=== PATIENT | male | born 1985 | race Caucasian/White ===

== ENCOUNTER 2018-08-22 02:23 | Emergency (ER) | payer OTHER, SELFPAY ==
[2018-08-22 02:24] VITALS: BP 143/92; PULSE 94; RESP 15; TEMP 37.3; O2SAT 98; BMI 26.4
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
--- NOTE | 2018-08-22 03:00 | ED.RN ---
DR. DENNIS SPOKE WITH PT. VERBAL ORDERS TO D/C SUICIDAL PRECAUTIONS.
--- NOTE | 2018-08-22 03:06 | ED.RN ---
PT SPEAKING WITH DR. DENNIS. SOON DR. DENNIS COMPLETES HIS EVALUATION HE GIVES VERBAL ORDERS TO DISCONTINUE THE SITTER.
--- NOTE | 2018-08-22 03:27 | ED.RN ---
PT GIVEN WRITTEN AND VERBAL DISCHARGE INSTRUCTIONS AND HOME GOING PRESCRIPTIONS. PT VERBALIZES UNDERSTANDING. DR. DENNIS TALKS WITH PT 1 ON . PT REPORTS TO THIS RN THAT HE FEELS SAFE GOING HOME. PT REPORTS THAT HE WILL TRY THE ANTIDEPRESSANT AND MAKE AN APPT WITH A COUNSELOR. PT GIVEN BELONGINGS, DENIES ANY FURTHER QUESTIONS. PT DRESSES HIMSELF. PT EDUCATED TO RETURN TO ED WITH ANY FURTHER SX OR INCREASED SI. PT VERBALIZES UNDERSTANDING OF ALL INSTRUCTIONS. AMBULATES OUT OF DEPT BY SELF.
== END 2018-08-22 03:33 | disposition home or self-care (01) ==
LOC: ED 03:21
PROVIDERS: Emergency Provider Emergency Medicine; Family Provider Family Medicine; PCP Family Medicine
DX: F32.9 Major depressive disorder, single episode, unspecified (principal); F41.9 Anxiety disorder, unspecified; Z79.899 Other long term (current) drug therapy
CPT/HCPCS: 99285

== ENCOUNTER → 2019-04-03 20:00 | Outpatient (CLI) | payer OTHER, SELFPAY ==
[2019-04-03] MEDS: Zolpidem Tartrate 5 MG Tablet PO (21:30)
== END ==
PROVIDERS: Family Provider Family Medicine; PCP Family Medicine; Visit Provider Family Medicine
DX: G47.33 Obstructive sleep apnea (adult) (pediatric) (principal)
CPT/HCPCS: 95810

== ENCOUNTER → 2019-05-18 20:00 | Outpatient (CLI) | payer OTHER, SELFPAY ==
[2019-05-18] MEDS: Zolpidem Tartrate 5 MG Tablet PO (22:03)
== END ==
PROVIDERS: Family Provider Family Medicine; PCP Family Medicine; Referring Provider Family Medicine; Visit Provider Family Medicine
DX: G47.33 Obstructive sleep apnea (adult) (pediatric) (principal)
CPT/HCPCS: 95811

== ENCOUNTER 2020-10-07 08:29 | Day surgery (SDC) | payer OTHER, SELFPAY ==
[2020-09-26 13:11] VITALS: BMI 26.4
--- NOTE | 2020-10-07 07:18 | HP_ITS ---
Intake Vital Signs 09/26/20 Height 5 ft 11 in 09/26/20 Weight: 190 lb 09/26/20 BMI 26.4 09/26/20 BP 119/77 09/26/20 Blood Pressure Location Rt brachial 09/26/20 Position Sitting 09/26/20 Respiration 18 09/26/20 Pulse 92 09/26/20 Pulse Source Monitor 09/26/20 Temp 97.5 F L 09/26/20 Temp Source Temporal 09/26/20 Pulse Oximetry (%) 97 09/26/20 Oxygen Delivery Method room air Intake Visit Reasons: Cyst on Neck Chief Complaint: cyst versus lipoma upper back lower posterior neck Operations Advisor Required: No Accompanied by: Allergies bee venom protein (honey bee) Allergy (Verified 09/26/20 13:13) Anaphylaxis Medications bupropion HCl 300 mg 24 hr tablet, extended release 300 mg PO QAM 09/26/20 [History Confirmed 09/26/20] PFSH Medical History (Updated 09/26/20 @ 13:09 by Agnes Hodge) Bulging lumbar disc (Chronic) Segmental and somatic dysfunction of thoracic region (Acute) Segmental and somatic dysfunction of lumbar region (Acute) Surgical History (Updated 09/26/20 @ 13:09 by Agnes Hodge) Hx of vasectomy (Acute) Family History (Updated 09/26/20 @ 13:10 by Agnes Hodge) Father Diabetes Hypertension Other Breast cancer Social History (Updated 09/26/20 @ 15:[address] Paul Hebert MD) Smoking Status: Never smoker alcohol intake: never substance use type: does not use what type of physical activity do you participate in: none HPI HPI HPI: TREVOR KNUTSON, is a 35 M who presents to the office today for HPI HPI Surgical H&P: Yes HPI: TREVOR KNUTSON, is a 35 M who presents to the office today for Mass on the back of his neck. He has a mass where the neck meets his upper back. He says it has been growing for years and it bothers him and gives him headaches. ROS General General: No weight change, appetite, fatigue, colon cancer, breast cancer or weakness HEENT HEENT: No difficulty swallowing, eye injury, eye surgery, swollen glands or hoarseness Endo Endocrine: No thyroid disease, diabetes mellitus, thyroid cancer, Hair loss, heat intolerance or cold intolerance Skin Skin: No rash or changing moles Breast Breast: No left breast lump, right breast lump, nipple discharge, breast pain, abnormal mammogram, abnormal US or breast enlargement Musc Musculoskeletal: No back problems, arthritis, rheumatoid arthritis, gout or joint pain Cardio Cardiovascular: No murmur, pacemaker, heart disease, atrial fibrillation, high blood pressure, heart attack, heart stent, palpitations, shortness of breat with exertion or chest pain Psych Psychiatric: Yes depression and anxiety; no hearing voices Resp Respiratory: No shortness of breath, Yes sleep apnea, No cough, No COPD, No asthma, No emphysema, No wheezing Gastro Gastrointestinal: No abdominal pain, No nausea or vomiting, No diarrhea, No constipation, No blood in stool, No acid reflux, No hemorrhoids, No ulcers, No gallbladder problem, No black,tarry stools Payam Hematologic: No blood thinners, No blood disorders, No bleeding, No anemia, No blood clots Neuro Neurologic: No system reviewed and no additional complaints, except as docu, No as per HPI, No abnormal walking, No abnormal hearing, No abnormal movements, No abnormal speech, No behavioral changes, No burning sensations, No confusion, No seizure-like activity, No unsteadiness, No dizziness, No localized weakness, No frequent falls, No headache(s), No lack of coordination, No loss of vision, No memory loss, No numbness, No other visual disturbances, No radiating pain, No restless legs, No sensory deficit, No fainting, No tingling, No tremor(s), No weakness, No other Exam Const General: cooperative Orientation: alert, oriented x3 Neck Other: Soft mobile mass on the back of the neck approximately 4 cm in diameter Chest Breast Palpation: No nipple discharge Resp Effort & Inspection: normal respiratory effort Auscultation: clear to auscultation bilaterally Cardio Rate: regular rate Rhythm: regular rhythm Heart Sounds: no murmurs GI Inspection: non-distended Palpation: soft, nontender Assessment & Plan Problems 1. Lipoma of back D17.1 Plan The patient has a lipoma on the back where the neck meets his back. It is soft and mobile and I believe it is a lipoma. Is approximately 4 cm in diameter. It is causing him headaches and he would like it removed. I discussed the risks of bleeding and infection with him and he would like to proceed with excision in the OR. Paul Hebert MD Pager: [facility] [address] [place] [address] Office: Coding Level of Care Code Off vis,new,level 3 Diagnoses Lipoma of back D17.1 I have re-examined the patient. There are no clinical changes since date of exam.
[2020-10-07 08:54] VITALS: BP 108/73; PULSE 78; RESP 18; TEMP 36.4; O2SAT 100; BMI 27.2
[2020-10-07] MEDS: Lactated Ringers 1,000 ML 100 ML IV (08:58)
[2020-10-07] MEDS: Cefazolin 2 GM in 0.9% Normal Saline 100 ML IV (09:28)
[2020-10-07] MEDS: Lidocaine 1% /Epi 1:100 (20ml) 20 ML Vial (09:46)
[2020-10-07 09:50] VITALS: BP 108/73; BP 109/88; PULSE 86; RESP 18; TEMP 36.8; O2SAT 100
[2020-10-07 09:55] VITALS: BP 108/73; BP 111/69; PULSE 81; RESP 18; O2SAT 98
[2020-10-07 10:00] VITALS: BP 108/73; BP 117/76; PULSE 86; RESP 18; O2SAT 99
--- NOTE | 2020-10-07 10:00 | LIP_PTH ---
PATIENT: TREVOR KNUTSON [place] [facility] [place][id number] AGE/SX: 35/M ROOM: RE10/07/[address]: Dr. Paul Hebert MD : 1985 BED: DIS: 10/07/2020 SPEC #: [id number] RECD: 10/07/20 10:14 STATUS: TATYANA REMary #: [id number] NEEMA: 10/07/20 10:[address]: Paul Hebert DEPT: SURGICAL PATHOLOGY RECD BY: Flaquito Frazier ENTERED: 10/07/20 11:54 SP TYPE: LIPOMA OTHR DR: Dr. Marc Webster, DO Tissues: Soft tissues, NOS Procedures: Surgery Specimen Level III HEADER OPERATION: Excision back lipoma PRE-OP DIAGNOSIS: Lipoma of back TISSUE SUBMITTED: Back lipoma MICROSCOPIC DIAGNOSIS Back lipoma, excision: Mature adipose tissue consistent with lipoma. SJ:dana 10/08/2020 MICROSCOPIC DESCRIPTION Slides are reviewed. GROSS DESCRIPTION Received in fixative is one container labeled with the patient's name and designated back lipoma. The specimen consists of a lobulated fragment of yellow fatty tissue measuring 6 x 5 x 1.7 cm. Serial sections reveal homogenous yellow cut surfaces without areas of cyst formation, necrosis or hemorrhage. Hot Oiler sections are submitted in two cassettes. / AM:dana 10/07/20 TC:1 CPT: 74561
[2020-10-07 10:05] VITALS: BP 107/71; BP 108/73; PULSE 75; RESP 18; TEMP 36.6; O2SAT 98
--- NOTE | 2020-10-07 10:08 | PCM.OPRPT ---
Problem List (1) Lipoma of back Status: Acute Report of Operation Date of Procedure: 10/07/20 Pre-Operative Diagnosis: Lipoma of the back Post-Operative Diagnosis: Same Surgery/Procedure Performed:: Excision of deep lipoma of the back, 6 cm in diameter Specimen's removed: Lipoma of the back Description of Procedure: The patient was brought back to the the operating room and placed in a right lateral decubitus position. MAC anesthesia was induced. The upper back and lower neck were prepped and draped in usual sterile fashion. An incision was marked and then injected with local anesthesia. Incision was made with scalpel and deepened to subcutaneous fat. The lipoma was encountered and dissected free circumferentially using electrocautery and blunt dissection. The mass was approximately 6 cm in diameter and was deep to the fascia. The mass was removed and the cavity was irrigated and hemostasis was obtained using electrocautery. The skin was closed with interrupted 3-0 Vicryl sutures as well as a running 4-0 Monocryl suture and then Steri-Strips and bandage were applied. Patient tolerated the procedure well and was brought to PACU. - Admit VTE Documentation VTE Mechan Device Prophylaxis: SCD's
--- NOTE | 2020-10-07 10:10 | PCM.DC.GS ---
Discharge Diet: Light diet - advance as tolerated Discharge Activity: May Not Drive - No driving for 1 week or while taking narcotic pain meds. May shower in (days): 1 Call your doctor if your incision/area has: Continuous Slow Oozing, Sudden Increased Bleeding, Increased Pain/ Swelling, Increased Redness, Foul Smelling Discharge, Swelling at the incision site Call your doctor if you observe: Fever of 101 or Higher Suture Line Care: Avoid Pulling/Pushing, Avoid Pinching/Bending Change Dressing in (Days):: 2 - Leave steri-strips in place for 1 week. Allergies/Adverse Reactions: Allergies bee venom protein (honey bee) Allergy (Verified 10/07/20 08:53) Anaphylaxis Medications to take at Discharge bupropion HCl 300 mg 24 hr tablet, extended release 300 mg PO QAM 09/26/20 Oxycodone HCl/Acetaminophen [Percocet 5-325 mg Tablet] 1 tab PO Q6H PRN PRN 3 Days #15 tablet 10/07/20 The following prescriptions were given: Oxycodone HCl/Acetaminophen [Percocet 5-325 mg Tablet] 1 tab PO Q6H PRN PRN 3 Days #15 tablet PRN Reason: Pain Score 4-10/10 Transmission Status: Sent to [facility] Primary Care Physician: Marc Webster DO [Primary Care Provider] - Test Results: Test results from this visit will be discussed in further detail at your follow-up appointment, if applicable. Please Follow Up With: Paul Hebert MD When: Please call to schedule 2 week follow up appointment. [phone]
[2020-10-07 10:32] VITALS: BP 108/73; BP 120/69; PULSE 73; RESP 16; TEMP 37.1; O2SAT 99
== END 2020-10-07 10:34 | disposition home or self-care (01) ==
LOC: SDC 08:30 → AC 08:30
PROVIDERS: PCP Family Medicine; Referring Provider Surgery; Visit Provider Surgery
PROC: (CPT 21931; principal; 2020-10-07 09:45)
DX: D17.1 Benign lipomatous neoplasm of skin and subcutaneous tissue of trunk (principal); Z20.822 Contact with and (suspected) exposure to COVID-19; F32.9 Major depressive disorder, single episode, unspecified; F41.9 Anxiety disorder, unspecified
CPT/HCPCS: 00300; 21931; 87426; 88304; C9803; J7120

== ENCOUNTER → 2021-05-07 | Outpatient (CLI) | payer OTHER, SELFPAY | END | disposition home or self-care (01) | LOC: LABSPEC 11:38 | PROVIDERS: PCP Family Medicine; Visit Provider Physician Assistant | DX: Z11.52 Encounter for screening for COVID-19 (principal) | CPT/HCPCS: 87635; U0005; U0003 ==

== ENCOUNTER → 2025-03-26 | Outpatient (CLI) | payer OTHER, SELFPAY ==
[2025-03-26 18:23] LABS: Hematocrit 33.0 % (40-54); Hemoglobin 10.9 g/dL (13.0-16.5); Immature Granulocytes Count 0.010 X10^3/uL (0.0-0.0); Mean Corp Hgb Conc 33.0 g/dL (32-36); Mean Corpuscular Volume 92.7 fL (80-94); Mean Platelet Vol. 9.9 fl (6.2-12.0); NRBC Flagged by Analyzer 0 % (0-5); Platelet Count 337 K/mm3 (150-450); RBC Distribution Width CV 12.5 % (11.6-14.6); RBC Distribution Width SD 43.0 fl (35.1-43.9); Red Blood Count 3.56 M/mm3 (4.6-6.2); White Blood Count 4.3 K/mm3 (4.4-11.0)
[2025-03-26 19:02] LABS: AST(SGOT) 22 U/L (<=37); Alanine Aminotransfer ALT/SGPT 31 U/L (<=46); Albumin, Serum 4.8 g/dL (3.5-5.0); Alkaline Phosphatase 64 U/L (40-129); Anion Gap 14 (5-15); BUN 14 mg/dL (4-19); BUN/Creat Ratio 17.3 RATIO (10-20); CRP < 3.00 mg/L (0.0-3.0); Calcium,Total 9.4 mg/dL (7.6-11.0); Carbon Dioxide 24.2 mmol/L (21.0-32.0); Chloride 99 mmol/L (98-108); Globulin 2.6 g/dL (2.2-4.2); Glucose 99 mg/dL (70-99); Potassium 3.5 mmol/L (3.3-5.1)
== END | disposition home or self-care (01) ==
PROVIDERS: PCP Family Medicine; Visit Provider Family Medicine
DX: Z00.00 Encounter for general adult medical examination without abnormal findings (principal); K62.5 Hemorrhage of anus and rectum; R68.89 Other general symptoms and signs; L83 Acanthosis nigricans
CPT/HCPCS: 36415; 80053; 83036; 84443; 85025; 85652; 86140

== ENCOUNTER → 2025-04-04 | Outpatient (CLI) | payer OTHER, SELFPAY ==
--- NOTE | 2025-04-04 15:16 | LES_PTH ---
PATIENT: TREVOR KNUTSON LOC: [facility] U#:[id number] AGE/SX: 39/M ROOM: RE04/04/[address]: Dr. Marc Webster DO : 1985 BED: DIS: 04/04/2025 SPEC #: [id number] RECD: 04/04/25 17:44 STATUS: TATYANA PETEY #: [id number] NEEMA: 04/04/25 15:[address]: Marc Webster DEPT: SURGICAL PATHOLOGY RECD BY: Kenneth Chamberlain Tissues: A - Skin of back, NOS Procedures: Special Stain Group I Surgery Specimen Level IV GMS Stain (control) HEADER OPERATION: Punch biopsy PRE-OP DIAGNOSIS: Chronic dark, red plaque like rash, psoriasis TISSUE SUBMITTED: A- 3mm punch biopsy right mid back MICROSCOPIC DIAGNOSIS A. Skin, right mid back, punch biopsy: - Superficial perivascular chronic inflammation with slight hyperkeratosis and patchy parakeratosis - see note. - PASD stain is negative for fungal organisms. 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 Eosinophils and neutrophils are lacking. Although psoriasis cannot be excluded, the histologic features typical of psoriasis are not observed. The differential diagnosis includes other causes of spongiotic dermatitis, fungal infection, and other less common entities. Clinical correlation is necessary. MICROSCOPIC DESCRIPTION Slides are reviewed. All matched controls reacted appropriately. These tests were developed and their performance characteristics determined by [facility]. They may not have been cleared or approved by the [place]. Food and Drug Administration. The FDA has determined that such clearance or approval is not necessary.? The above immunohistochemical?markers and/or special stains have been reviewed by the Pathologist. GROSS DESCRIPTION A. Received in formalin labeled with the patient's name and date of . Designated as R back is a 0.3 x 0.2 cm pierre skin punch excised to a maximum depth of 0.1 cm. The resection margin is inked green. Prior 1 cassette. [facility] 04/05/2025 CPT:22423 ,95515
--- OUTSIDE RECORDS SUMMARY | 2025-04-04 20:33 | XMS RPT_ITS | CCD ---
Author Organization [facility] Care Team Providers Care Application Support Developer Name Role Phone REFERRING, LUISY WO ID Attending Unavailable Dr. aMrc Webster DO Primary Care Provider [phone] Dr. Marc Webster DO Attending Provider Marc Webster Attending Unavailable Marc Webster Primary Care Unavailable Allergies Allergy Classification Reported Allergen(s) Allergy Type Date of Onset Reaction(s) Facility (2 sources) bee venom protein (honey bee) Allergy to substance 10-07-2020 Anaphylaxis [facility] (1 source) bee venom protein (honey bee) Drug allergy (disorder) 03-27-2025 [facility] Repository Medications Current Medications Medication Drug Class(es) Dates Sig (Normalized) Sig (Original) buprenorphine 2 mg / naloxone 0.5 mg sublingual film (1 source) Partial Opioid Agonist, Opioid Antagonist Start: 03-27-2025 Buprenorphine-Nalo xone 2-0.5 mg film Active 1 NMA BUCCAL daily March 27, 2025 12:00am place 1 strip/tab under (each) side of tongue pantoprazole 40 mg delayed release oral tablet (1 source) Proton Pump Inhibitor Start: 03-27-2025 take 1 tablet by mouth once daily Pantoprazole 40 mg tablet,delayed release (DR/EC) Active 40 mg PO daily March 27, 2025 12:00am Completed/Discontinued Medications Medication Drug Class(es) Dates Sig (Normalized) Sig (Original) acetaminophen 325 mg / oxyCODONE hydrochloride 5 mg oral tablet (2 sources) Opioid Agonist Start: 10-07-2020 End: 10-10-2020 Oxycodone-Acetamino phen 1 EACH tablet Discontinued 1 {tbl} PO EVERY 6 HOURS NEEDED as needed for Pain Score 4-10/10 15 3 0 October 07, 2020 October 09, 2020 1:00am October 10, 2020 1:03am Lipoma of back Benign lipomatous neoplasm of skin and subcutaneous tissue of trunk Start: 10-07-2020 End: 10-10-2020 take 1 tablet by mouth every six hours as needed Oxycodone-Acetaminophen Discontinued 1 TABLET PO EVERY 6 HOURS NEEDED 15 3 October 07, 2020 October 10, 2020 12:03am 24 hr buPROPion hydrochloride 300 mg extended release oral tablet (2 sources) Aminoketone Start: 09-26-2020 End: 03-27-2025 take 1 tablet by mouth once daily in the morning Bupropion Hcl (Wellbutrin Xl) 300 mg tablet extended release 24 hr Discontinued 300 mg PO EVERY MORNING September 26, 2020 1:00am March 27, 2025 3:13pm cyclobenzaprine hydrochloride 10 mg oral tablet (2 sources) Muscle Relaxant Start: 04-30-2016 End: 12-08-2017 take 1 tablet by mouth once daily as needed for muscle spasms Cyclobenzaprine 10 MG tablet Discontinued 10 mg PO DAILY NEEDED as needed for Muscle Spasm April 30, 2016 12:00am December 08, 2017 3:53pm metaxalone 800 mg oral tablet (2 sources) Start: 07-26-2016 End: 12-08-2017 take 1 tablet by mouth twice daily as needed for muscle spasms Metaxalone 800 MG tablet Discontinued 800 mg PO TWICE DAILY NEEDED as needed for Muscle Spasm July 26, 2016 1:00am December 08, 2017 3:53pm PARoxetine hydrochloride 20 mg oral tablet (2 sources) Serotonin Reuptake Inhibitor Start: 08-22-2018 End: 09-26-2020 take 1 tablet by mouth once daily Paroxetine Hcl 20 MG tablet Discontinued 20 mg PO DAILY 30 August 22, 2018 1:00am September 26, 2020 2:13pm Problems Problem Classification Problem Date Documented Da te Episodic/Chronic Immunizations and screening for infectious disease (2 sources) Patient encounter status; Translations: [Encounter for screening for COVID-19] 05-06-2021 Episodic Other and unspecified benign neoplasm (2 sources) Lipoma of back; Translations: [Benign lipomatous neoplasm of skin and subcutaneous tissue of trunk] 10-22-2020 Episodic Other bone disease and musculoskeletal deformities (4 sources) Segmental and somatic dysfunction; Translations: [Segmental and somatic dysfunction of lumbar region] 09-26-2020 Episodic Spondylosis; intervertebral disc disorders; other back problems (2 sources) Disorder of lumbar disc; Translations: [Other intervertebral disc degeneration, lumbar region] 12-08-2017 Chronic Comment on above: L3, L4, L5 Results Test Name Value Interpretation Reference Range Facility Absolute lymphocyte countOrd ered By: Macr Webster on 03-26-2025 Lymphocytes Auto (Unsp spec) [#/Vol] 1.32 10*3/uL 0.83-4.51 [facility] Absolute neutrophil countOrd ered By: Marc Webster on 03-26-2025 Neutrophils (Bld) [#/Vol] 2.5 10*3/uL 2.0-7.7 [facility] Anion gap in Serum or Plasma Ordered By: Marc Webster on 03-26-2025 Anion gap [Moles/Vol] 14 mmol/L 5- [facility] Automated lymphocyte count a s percentage of total leukocytesOrdered By: Marc Webster on 03-26-2025 Lymphocytes/100 WBC Auto (Unsp spec) 30.9 % [facility] BUN/creatinine ratioOrdered By: Marc Webster on 03-26-2025 Urea nitrogen/Creatinine [Mass ratio] 17.3 mg/mg 10- [facility] Basophil percentageOrdered B y: Marc Webster on 03-26-2025 Basophils/100 WBC (Bld) 0.7 % 0-1 [facility] Bilirubin, totalOrdered By: Marc Webster on 03-26-2025 Bilirubin [Mass/Vol] 0.27 mg/dL 0.00-1.30 [facility] CBC W/Diff, Automatedon Absolute Lymph 1.32 X10 3/uL Normal 0.83-4.51 [facility] Comment on above: Performed By: #### L 101.9900, L501.9520, L501.9985, L501.6710, L500.4050, L100.0100 #### [facility] [address] [place], [place], [id number] Absolute Neut 2.5 X10 3/uL Normal 2.0-7.7 [facility] Comment on above: Performed By: #### L 101.9900, L501.9520, L501.9985, L501.6710, L500.4050, L100.0100 #### [facility] [address] [place], [address] Basophils/100 WBC (Bld) 0.7 % Normal 0-1 [facility] Comment on above: Performed By: #### L 101.9900, L501.9520, L501.9985, L501.6710, L500.4050, L100.0100 #### [facility] [address] [place], [address] Eosinophils/100 WBC (Bld) 1.2 % Normal 0-5 [facility] Comment on above: Performed By: #### L 101.9900, L501.9520, L501.9985, L501.6710, L500.4050, L100.0100 #### [facility] [address] [place], [address] Erythrocyte distribution width (RBC) [Ratio] 12.5 % Normal 11.6-14.6 [facility] Comment on above: Performed By: #### L 101.9900, L501.9520, L501.9985, L501.6710, L500.4050, L100.0100 #### [facility] [address] [place], [address] Hematocrit (Bld) [Volume fraction] 33.0 % Low 40-54 [facility] Comment on above: Performed By: #### L 101.9900, L501.9520, L501.9985, L501.6710, L500.4050, L100.0100 #### [facility] [address] [place], [address] Hemoglobin (Bld) [Mass/Vol] 10.9 g/dL Low 13.0-16.5 [facility] Comment on above: Performed By: #### L 101.9900, L501.9520, L501.9985, L501.6710, L500.4050, L100.0100 #### [facility] [address] [place], [address] IG% 0.200 Normal 0.0-0.9 [facility] Comment on above: Result Comment: IG% - Immature Granulocytes (promyelocytes, myelocytes and metamyelocytes) > 1% indicates that a LEFT SHIFT is Present. Performed By: #### L 101.9900, L501.9520, L501.9985, L501.6710, L500.4050, L100.0100 #### [facility] [address] [place], [address] Lymphocytes/100 WBC (Bld) 30.9 % Normal 19-41 [facility] Comment on above: Performed By: #### L 101.9900, L501.9520, L501.9985, L501.6710, L500.4050, L100.0100 #### [facility] [address] [place], [address] MCH (RBC) [Entitic mass] 30.6 pg Normal 27.0-32.0 [facility] Comment on above: Performed By: #### L 101.9900, L501.9520, L501.9985, L501.6710, L500.4050, L100.0100 #### [facility] [address] [place], [address] MCHC (RBC) [Mass/Vol] 33.0 g/dL Normal 32-36 [facility] Comment on above: Performed By: #### L 101.9900, L501.9520, L501.9985, L501.6710, L500.4050, L100.0100 #### [facility] [address] [place], [address] MCV (RBC) [Entitic vol] 92.7 fL Normal 80-94 [facility] Comment on above: Performed By: #### L 101.9900, L501.9520, L501.9985, L501.6710, L500.4050, L100.0100 #### [facility] [address] [place], [address] Monocytes/100 WBC (Bld) 8.0 % Normal 0-10 [facility] Comment on above: Performed By: #### L 101.9900, L501.9520, L501.9985, L501.6710, L500.4050, L100.0100 #### [facility] [address] [place], [address] Neutrophils/100 WBC (Bld) 59.0 % Normal 47-70 [facility] Comment on above: Performed By: #### L 101.9900, L501.9520, L501.9985, L501.6710, L500.4050, L100.0100 #### [facility] [address] [place], [address] Nucleated RBC (Bld) [#/Vol] 0 10*3/uL Normal 0-5 [facility] Comment on above: Performed By: #### L 101.9900, L501.9520, L501.9985, L501.6710, L500.4050, L100.0100 #### [facility] [address] [place], [address] Platelet mean volume (Bld) [Entitic vol] 9.9 fL Normal 6.2-12.0 [facility] Comment on above: Performed By: #### L 101.9900, L501.9520, L501.9985, L501.6710, L500.4050, L100.0100 #### [facility] [address] [place], [address] Platelets (Bld) [#/Vol] 337 10*3/uL Normal 150-450 [facility] Comment on above: Performed By: #### L 101.9900, L501.9520, L501.9985, L501.6710, L500.4050, L100.0100 #### [facility] [address] [place], [address] RBC (Bld) [#/Vol] 3.56 10*6/uL Low 4.6-6.2 [facility] Comment on above: Performed By: #### L 101.9900, L501.9520, L501.9985, L501.6710, L500.4050, L100.0100 #### [facility] [address] [place], [address] RDW SD 43.0 fl Normal 35.1-43.9 [facility] Comment on above: Performed By: #### L 101.9900, L501.9520, L501.9985, L501.6710, L500.4050, L100.0100 #### [facility] [address] [place], [address] WBC (Bld) [#/Vol] 4.3 10*3/uL Low 4.4-11.0 [facility] Comment on above: Performed By: #### L 101.9900, L501.9520, L501.9985, L501.6710, L500.4050, L100.0100 #### [facility] [address] [place], [address] CRPon 03-26-2025 C-REACTIVE PROT < 3.00 Normal 0.0-3.0 [facility] Comment on above: Performed By: #### L 101.9900, L501.9520, L501.9985, L501.6710, L500.4050, L100.0100 #### [facility] [address] [place], [address] Carbon dioxide, total [Moles /volume] in Central venous bloodOrdered By: Marc Webster on 03-26-2025 CO2 [Moles/Vol] 24.2 mmol/L 21.0-32.0 [facility] Chloride assayOrdered By: Orly Webster on 03-26-2025 Chloride [Moles/Vol] 99 mmol/L 98-108 [facility] Comprehensive Metabolic Prof ilon 03-26-2025 Albumin [Mass/Vol] 4.8 g/dL Normal 3.5-5.0 [facility] Comment on above: Performed By: #### L 101.9900, L501.9520, L501.9985, L501.6710, L500.4050, L100.0100 #### [facility] [address] [place], [address] Albumin/Globulin [Mass ratio] 1.8 {ratio} Normal 0.9-2.4 [facility] Comment on above: Performed By: #### L 101.9900, L501.9520, L501.9985, L501.6710, L500.4050, L100.0100 #### [facility] [address] [place], [address] ALK PHOS 64 U/L Normal 40-129 [facility] Comment on above: Performed By: #### L 101.9900, L501.9520, L501.9985, L501.6710, L500.4050, L100.0100 #### [facility] [address] [place], [address] ALT [Catalytic activity/Vol] 31 U/L Normal <=46 [facility] Comment on above: Performed By: #### L 101.9900, L501.9520, L501.9985, L501.6710, L500.4050, L100.0100 #### [facility] [address] [place], [address] AST [Catalytic activity/Vol] 22 U/L Normal <=37 [facility] Comment on above: Performed By: #### L 101.9900, L501.9520, L501.9985, L501.6710, L500.4050, L100.0100 #### [facility] [address] [place], [address] Bilirubin [Mass/Vol] 0.27 mg/dL Normal 0.00-1.30 [facility] Comment on above: Performed By: #### L 101.9900, L501.9520, L501.9985, L501.6710, L500.4050, L100.0100 #### [facility] [address] [place], [address] BUN/CRE 17.3 RATIO Normal 10-20 [facility] Comment on above: Performed By: #### L 101.9900, L501.9520, L501.9985, L501.6710, L500.4050, L100.0100 #### [facility] [address] [place], [address] Calcium [Mass/Vol] 9.4 mg/dL Normal 7.6-11.0 [facility] Comment on above: Performed By: #### L 101.9900, L501.9520, L501.9985, L501.6710, L500.4050, L100.0100 #### [facility] [address] [place], [address] Chloride [Moles/Vol] 99 mmol/L Normal 98-108 [facility] Comment on above: Performed By: #### L 101.9900, L501.9520, L501.9985, L501.6710, L500.4050, L100.0100 #### [facility] [address] [place], [address] CO2 [Moles/Vol] 24.2 mmol/L Normal 21.0-32.0 [facility] Comment on above: Performed By: #### L 101.9900, L501.9520, L501.9985, L501.6710, L500.4050, L100.0100 #### [facility] [address] [place], [address] Creatinine [Mass/Vol] 0.81 mg/dL Normal 0.70-1.20 [facility] Comment on above: Performed By: #### L 101.9900, L501.9520, L501.9985, L501.6710, L500.4050, L100.0100 #### [facility] [address] [place], [address] GAP 14 Normal 5-15 [facility] Comment on above: Performed By: #### L 101.9900, L501.9520, L501.9985, L501.6710, L500.4050, L100.0100 #### [facility] [address] [place], [address] GFR/1.73 sq M.predicted among non-blacks MDRD (S/P/Bld) [Vol rate/Area] 116 mL/min/{1.73_m2} Normal >60 [facility] Comment on above: Result Comment: mL/m in/1.73m2 CKD-EPI Creatinine Equation (2020) Performed By: #### L 101.9900, L501.9520, L501.9985, L501.6710, L500.4050, L100.0100 #### [facility] [address] [place], [address] Globulin (S) [Mass/Vol] 2.6 g/dL Normal 2.2-4.2 [facility] Comment on above: Performed By: #### L 101.9900, L501.9520, L501.9985, L501.6710, L500.4050, L100.0100 #### [facility] [address] [place], [address] Glucose [Mass/Vol] 99 mg/dL Normal 70-99 [facility] Comment on above: Performed By: #### L 101.9900, L501.9520, L501.9985, L501.6710, L500.4050, L100.0100 #### [facility] [address] [place], [address] Potassium [Moles/Vol] 3.5 mmol/L Normal 3.3-5.1 [facility] Comment on above: Performed By: #### L 101.9900, L501.9520, L501.9985, L501.6710, L500.4050, L100.0100 #### [facility] [address] [place], [address] Sodium [Moles/Vol] 137 mmol/L Normal 133-145 [facility] Comment on above: Performed By: #### L 101.9900, L501.9520, L501.9985, L501.6710, L500.4050, L100.0100 #### [facility] [address] [place], [address] T PROT 7.4 g/dL Normal 5.9-8.4 [facility] Comment on above: Performed By: #### L 101.9900, L501.9520, L501.9985, L501.6710, L500.4050, L100.0100 #### [facility] [address] [place], [address] Urea nitrogen [Mass/Vol] 14 mg/dL Normal 4-19 [facility] Comment on above: Performed By: #### L 101.9900, L501.9520, L501.9985, L501.6710, L500.4050, L100.0100 #### [facility] [address] [place], [place], [address] Eosinophil percentageOrdered By: Marc Webster on 03-26-2025 Eosinophils/100 WBC (Bld) 1.2 % 0-5 [facility] Erythrocyte Sed Rateon 03-26 SED RATE 4 mm/hr Normal 0-20 [facility] Comment on above: Performed By: #### L 101.9900, L501.9520, L501.9985, L501.6710, L500.4050, L100.0100 #### [facility] [address] [place], [place], [address] Erythrocyte distribution wid th ratioOrdered By: Marc Webster on 03-26-2025 Erythrocyte distribution width (RBC) [Ratio] 12.5 % 11.6-14.6 [facility] Erythrocyte distribution wid th standard deviationOrdered By: Marc Webster on 03-26-2025 Erythrocyte distribution width (RBC) [Ratio] 43.0 fl 35.1-43.9 [facility] Erythrocyte sedimentation ra teOrdered By: Marc Webster on 03-26-2025 ESR (Bld) [Velocity] 4 mm/h 0-20 [facility] Glomerular filtration rate ( GFR) estimation/1.73 sq m using serum, plasma, or whole bOrdered By: Marc Webster on 03-26-2025 GFR/1.73 sq M.predicted among non-blacks MDRD (S/P/Bld) [Vol rate/Area] 116 mL/min/{1.73_m2} >60 [facility] Comment on above: mL/min/1.73m2 CKD-EP I Creatinine Equation (2020) Hematocrit Auto (Bld) [Volum e fraction]Ordered By: Marc Webster on 03-26-2025 Hematocrit (Bld) [Volume fraction] 33.0 % Low 40-54 [facility] Hemoglobin A1con 03-26-2025 HbA1c (Bld) [Mass fraction] 5.7 % Normal <=5.6 [facility] Comment on above: Result Comment: Norm al < 5.7 % Prediabetic 5.7 - 6.4 % Diabetic >or= 6.5 % Please note range changes. Performed By: #### L 101.9900, L501.9520, L501.9985, L501.6710, L500.4050, L100.0100 #### [facility] [address] [place], [address] Hemoglobin A1c percentageOrd ered By: Marc Webster on 03-26-2025 HbA1c (Bld) [Mass fraction] 5.7 % <5.7 [facility] Comment on above: Normal < 5.7 % Predi abetic 5.7 - 6.4 % Diabetic >or= 6.5 % Please note range changes. Hemoglobin measurementOrdere d By: Marc Webster on 03-26-2025 Hemoglobin (Bld) [Mass/Vol] 10.9 g/dL Low 13.0-16.5 [facility] Immature granulocytes/100 WB C Auto (Bld)Ordered By: Marc Webster on 03-26-2025 Immature granulocytes/100 WBC (Bld) 0.200 % 0.0-0.9 [facility] Comment on above: IG% - Immature Granu locytes (promyelocytes, myelocytes and metamyelocytes) > 1% indicates that a LEFT SHIFT is Present. Laboratory - Chemistry and C hemistry - challengeOrdered By: Marc Webster on 03-26-2025 AST [Catalytic activity/Vol] 22 U/L <38 [facility] MCV (mean corpuscular volume ) determinationOrdered By: Marc Webster on 03-26-2025 MCV (RBC) [Entitic vol] 92.7 fL 80-94 [facility] Mean corpuscular hemoglobin (MCH) determinationOrdered By: Marc Webster on 03-26-2025 MCH (RBC) [Entitic mass] 30.6 pg 27.0-32.0 [facility] Mean corpuscular hemoglobin concentration (MCHC) determinationOrdered By: Marc Webster on 03-26-2025 MCHC (RBC) [Mass/Vol] 33.0 g/dL 32-36 [facility] Mean platelet volume determi nationOrdered By: Marc Webster on 03-26-2025 Platelet mean volume (Bld) [Entitic vol] 9.9 fL 6.2-12.0 [facility] Monocyte percentageOrdered B y: Marc Webster on 03-26-2025 Monocytes/100 WBC (Bld) 8.0 % 0-10 [facility] Neutrophil percentageOrdered By: Marc Webster on 03-26-2025 Neutrophils/100 WBC (Bld) 59.0 % 47-70 [facility] Nucleated red blood cell per centageOrdered By: Marc Webster on 03-26-2025 Nucleated RBC/100 WBC (Bld) [Ratio] 0 % 0-5 [facility] Platelet countOrdered By: Orly Webster on 03-26-2025 Platelets (Bld) [#/Vol] 337 10*3/uL 150-450 [facility] Potassium measurement (mass/ volume)Ordered By: Marc Webster on 03-26-2025 Potassium (Unsp spec) [Mass/Vol] 3.5 mmol/L 3.3-5.1 [facility] RBC Auto (Bld) [#/Vol]Ordere d By: Marc Webster on 03-26-2025 RBC (Bld) [#/Vol] 3.56 10*6/uL Low 4.6-6.2 [facility] Serum creatinine measurement (mass/volume)Ordered By: Marc Webster on 03-26-2025 Creatinine [Mass/Vol] 0.81 mg/dL 0.70-1.20 [facility] Serum globulin measurementOr dered By: Marc Webster on 03-26-2025 Globulin (S) [Mass/Vol] 2.6 g/dL 2.2-4.2 [facility] Serum glucose measurement (m ass/volume)Ordered By: Marc Webster on 03-26-2025 Glucose [Mass/Vol] 99 mg/dL 70-99 [facility] Serum or plasma C reactive p rotein measurement (mass/volume)Ordered By: Marc Webster on 03-26-2025 CRP [Mass/Vol] mg/L 0.0-3.0 [facility] Serum or plasma alanine blackwell otransferase (ALT) measurementOrdered By: Marc Webster on 03-26-2025 ALT [Catalytic activity/Vol] 31 U/L <47 [facility] Serum or plasma albumin jon urement (mass/volume)Ordered By: Marc Webster on 03-26-2025 Albumin [Mass/Vol] 4.8 g/dL 3.5-5.0 [facility] Serum or plasma albumin/glob ulin mass ratioOrdered By: Marc Webster on 03-26-2025 Albumin/Globulin [Mass ratio] 1.8 {ratio} 0.9-2.4 [facility] Serum or plasma alkaline fernando sphatase measurementOrdered By: Marc Webster on 03-26-2025 ALP [Catalytic activity/Vol] 64 U/L 40-129 [facility] Serum or plasma calcium jon urement (mass/volume)Ordered By: Marc Webster on 03-26-2025 Calcium [Mass/Vol] 9.4 mg/dL 7.6-11.0 [facility] Serum or plasma urea nitroge n measurement (mass/volume)Ordered By: Marc Webster on 03-26-2025 Urea nitrogen [Mass/Vol] 14 mg/dL 4-19 [facility] Sodium levelOrdered By: Marc Webster on 03-26-2025 Sodium [Moles/Vol] 137 mmol/L 133-145 [facility] TSH DL <= 0.005 mIU/L QnOrde red By: Marc Webster on 03-26-2025 TSH Qn 1.520 uIU/mL 0.300-4.200 [facility] Thyroid Stim Hormone (TSH)on 03-26-2025 TSH 1.520 uIU/mL Normal 0.300-4.200 [facility] Comment on above: Performed By: #### L 101.9900, L501.9520, L501.9985, L501.6710, L500.4050, L100.0100 #### [facility] [address] [place], [address] Total proteinOrdered By: Irina Webster on 03-26-2025 Protein [Mass/Vol] 7.4 g/dL 5.9-8.4 [facility] White blood cell (WBC) count Ordered By: Marc Webster on 03-26-2025 WBC (Bld) [#/Vol] 4.3 10*3/uL Low 4.4-11.0 [facility] MRI KNEE W/O CONTRAST RIGHTo n 12-24-2022 MRI KNEE W/O CONTRAST RIGHT ORIGINAL EXAMINATION: MRI OF THE RIGHT KNEE WITHOUT CONTRAST12/24/2022 1:55 pm TECHNIQUE: Multiplanar multisequence MRI of the right knee was performed without the administration of intravenous contrast. COMPARISON: None HISTORY: ORDERING SYSTEM PROVIDED HISTORY: Reason for Exam: Prepatellar bursitis, right knee, Sprain. FINDINGS: MUSCLES, TENDONS, AND LIGAMENTS: The anterior cruciate ligament is intact. The posterior cruciate ligament is intact. There is a thickened morphology of the superficial component of the medial collateral ligament associated periligamentous edema. No evidence of fiber discontinuity of the deep or superficial components. The lateral collateral ligament complex is intact. The popliteus and biceps femoris tendons, iliotibial band, and extensor mechanism are intact. Mild patellar origin tendinosis suspected. MENISCI: There is a radial flap tear/parrot-beak tear involving the body and posterior horn segments of medial meniscus, involving the avascular zone the lateral meniscus is intact. OSSEOUS STRUCTURES AND JOINTS: No fracture or dislocation is evident. No visualized marrow replacing osseous lesions. Medial femorotibial compartment articular cartilage is intact. Lateral femorotibial compartment articular cartilage is intact. High-grade cartilage thinning the periphery of odd patellar facet. The remainder of the patellofemoral compartment articular cartilage is intact. Moderate volume effusion. Focal fluid of the infrapatellar recess is noted with surrounding scar tissue fluid distension of the popliteus tendon sheath with synovitis. Thickened suprapatellar and medial plica. SOFT TISSUES: Trace volume Watson's cyst with element of rupture. There may be trace volume focal fluid at the prepatellar space. Additional subcutaneous edema is evident. There is scattered feathery edema of the distal quadriceps compartment musculature, the biceps femoris muscle, as well as the gastrocnemius-soleu s musculature, compatible with low-grade strain. IMPRESSION: 1. Radial flap tear/parrot-beak tear medial meniscus. 2. Low-grade sprain of medial collateral ligament. 3. High-grade cartilage thinning of the odd facet of the patella. Moderate volume effusion. 4. Focal fluid collection of the infrapatellar recess/Hoffa's fat pad with surrounding curvilinear scar tissue. 5. Minimal focal fluid signal of the prepatellar region may reflect bursitis in the appropriate clinical setting. Surrounding subcutaneous edema. Interpreted by: Tanner Mota DO Preliminary Report By: Tanner Mota DO Electronically signed By Tanner Mota DO Dictated Date: 12/24/2022 2:41:25 PM Prelim Date: 12/24/2022 2:54:16 PM Sign Date: 12/24/2022 2:54:16 PM Ordering Provider: Y REFERRING [facility] ([place]) Encounters Encounter Date Encounter Type Care Provider Facility Start: 03-31-2025 Encounter for genera l adult medical examination without abnormal findings Marc Webster [facility] Start: 03-26-2025 End: 03-26-[address] Marc Webster DO Work Phone: -Laboratory [facility] Lebl[facility] Start: 03-26-2025 End: 03-26-[address] Marc Webster DO -Laboratory Ernestine Leblanc [facility] Start: 03-26-2025 End: 03-26-2025 ambulatory Marc Webster Facility:[facility] Start: 12-24-2022 End: 12-25-2022 ambulatory PHY WO ID REFERRING Facility: Start: 12-24-2022 End: 12-24-2022 Patient encounter procedure PHY WO ID REFERRING [facility] Payers Date Payer Category Payer Self-pay [id number] 2025 Unknown [id number] 2022 Unknown [id number] 2016 Unknown [facility] [id number] [facility] 1985 Unknown [id number] Unknown [id number] Social History Date Type Detail Facility Tobacco smoking stat [facility] Unknown if ever smoked [facility] Work Phone: Start: 1985 Sex Assigned At Male A [facility] Tobacco smoking status No Smokin g Status Entered [facility] Start: 03-27-2025 [facility] Start: 10-02-2020 Tobacco Use Tobacco Use [facility] Clinical Note 12-24-2022 Note Date & Type Note Facility 12-24-2022 Note ORIGINAL EXAMINATION: MRI OF THE RIGHT KNEE WITHOUT CONTRAST12/24/2022 1:55 pm TECHNIQUE: Multiplanar multisequence MRI of the right knee was performed without the administration of intravenous contrast. COMPARISON: None HISTORY: ORDERING SYSTEM PROVIDED HISTORY: Reason for Exam: Prepatellar bursitis, right knee, Sprain. FINDINGS: MUSCLES, TENDONS, AND LIGAMENTS: The anterior cruciate ligament is intact. The posterior cruciate ligament is intact. There is a thickened morphology of the superficial component of the medial collateral ligament associated periligamentous edema. No evidence of fiber discontinuity of the deep or superficial components. The lateral collateral ligament complex is intact. The popliteus and biceps femoris tendons, iliotibial band, and extensor mechanism are intact. Mild patellar origin tendinosis suspected. MENISCI: There is a radial flap tear/parrot-beak tear involving the body and posterior horn segments of medial meniscus, involving the avascular zone the lateral meniscus is intact. OSSEOUS STRUCTURES AND JOINTS: No fracture or dislocation is evident. No visualized marrow replacing osseous lesions. Medial femorotibial compartment articular cartilage is intact. Lateral femorotibial compartment articular cartilage is intact. High-grade cartilage thinning the periphery of odd patellar facet. The remainder of the patellofemoral compartment articular cartilage is intact. Moderate volume effusion. Focal fluid of the infrapatellar recess is noted with surrounding scar tissue fluid distension of the popliteus tendon sheath with synovitis. Thickened suprapatellar and medial plica. SOFT TISSUES: Trace volume Watson's cyst with element of rupture. There may be trace volume focal fluid at the prepatellar space. Additional subcutaneous edema is evident. There is scattered feathery edema of the distal quadriceps compartment musculature, the biceps femoris muscle, as well as the gastrocnemius-soleus musculature, compatible with low-grade strain. IMPRESSION: 1. Radial flap tear/parrot-beak tear medial meniscus. 2. Low-grade sprain of medial collateral ligament. 3. High-grade cartilage thinning of the odd facet of the patella. Moderate volume effusion. 4. Focal fluid collection of the infrapatellar recess/Hoffa's fat pad with surrounding curvilinear scar tissue. 5. Minimal focal fluid signal of the prepatellar region may reflect bursitis in the appropriate clinical setting. Surrounding subcutaneous edema. Interpreted by: Tanner Mota DO Preliminary Report By: Tanner Mota DO Electronically signed By Tanner Mota DO Dictated Date: 12/24/2022 2:41:25 PM Prelim Date: 12/24/2022 2:54:16 PM Sign Date: 12/24/2022 2:54:16 PM Ordering Provider: SETH REFERRING [facility] Clinical Note 12-24-2022 Note Date & Type Note Facility 12-24-2022 Note ORIGINAL EXAMINATION: MRI OF THE RIGHT KNEE WITHOUT CONTRAST12/24/2022 1:55 pm TECHNIQUE: Multiplanar multisequence MRI of the right knee was performed without the administration of intravenous contrast. COMPARISON: None HISTORY: ORDERING SYSTEM PROVIDED HISTORY: Reason for Exam: Prepatellar bursitis, right knee, Sprain. FINDINGS: MUSCLES, TENDONS, AND LIGAMENTS: The anterior cruciate ligament is intact. The posterior cruciate ligament is intact. There is a thickened morphology of the superficial component of the medial collateral ligament associated periligamentous edema. No evidence of fiber discontinuity of the deep or superficial components. The lateral collateral ligament complex is intact. The popliteus and biceps femoris tendons, iliotibial band, and extensor mechanism are intact. Mild patellar origin tendinosis suspected. MENISCI: There is a radial flap tear/parrot-beak tear involving the body and posterior horn segments of medial meniscus, involving the avascular zone the lateral meniscus is intact. OSSEOUS STRUCTURES AND JOINTS: No fracture or dislocation is evident. No visualized marrow replacing osseous lesions. Medial femorotibial compartment articular cartilage is intact. Lateral femorotibial compartment articular cartilage is intact. High-grade cartilage thinning the periphery of odd patellar facet. The remainder of the patellofemoral compartment articular cartilage is intact. Moderate volume effusion. Focal fluid of the infrapatellar recess is noted with surrounding scar tissue fluid distension of the popliteus tendon sheath with synovitis. Thickened suprapatellar and medial plica. SOFT TISSUES: Trace volume Watson's cyst with element of rupture. There may be trace volume focal fluid at the prepatellar space. Additional subcutaneous edema is evident. There is scattered feathery edema of the distal quadriceps compartment musculature, the biceps femoris muscle, as well as the gastrocnemius-soleus musculature, compatible with low-grade strain. IMPRESSION: 1. Radial flap tear/parrot-beak tear medial meniscus. 2. Low-grade sprain of medial collateral ligament. 3. High-grade cartilage thinning of the odd facet of the patella. Moderate volume effusion. 4. Focal fluid collection of the infrapatellar recess/Hoffa's fat pad with surrounding curvilinear scar tissue. 5. Minimal focal fluid signal of the prepatellar region may reflect bursitis in the appropriate clinical setting. Surrounding subcutaneous edema. Interpreted by: Tanner Mota DO Preliminary Report By: Tanner Mota DO Electronically signed By Tanner Mota DO Dictated Date: 12/24/2022 2:41:25 PM Prelim Date: 12/24/2022 2:54:16 PM Sign Date: 12/24/2022 2:54:16 PM Ordering Provider: SETH REFERRING [facility] Evaluation + Plan note Note Date & Type Note Facility Evaluation + Plan note No data available for this section [facility] Evaluation note Note Date & Type Note Facility Evaluation note No assessment information availa ble [facility] Work Phone: Hospital Discharge instructions Note Date & Type Note Facility Hospital Discharge instructions No data available for this section [facility] Reason for referral (narrative) Note Date & Type Note Facility Reason for referral (narrative) No reason for referral information available [facility] Work Phone: Family History No Family History Records Found Relationship Condition Age at Onset Recorded Date/T bony Not Specified Malignant neoplasm of breast Unknown father Diabetes mellitus Unknown Hypertension Unknown Summary Purpose Advance Directives No Advanced Directives Records Found Advance Directive Response Recorded Date/ Time Advance Directives No April 5:18pm Additional Source Comments Goals (unrecognized section and content) Goals may be documented in a n alternate section No data available for this sectionGoals may be documented in an alternate section (unrecognized sect ion and content) No Status Records FoundNo Status Records Found INFORMATION SOURCE (unrecogn ized section and content) DATE CREATED AUTHOR 12/31/2022 [place] [employer] ([place]) DATE CREATED AUTHOR AUTHOR'S ORGANIZ ATION 04/01/2025 [facility] Care Teams (unrecognized sec tion and content) Team Status: Active Member Role/Relationship Status Dates Dr. Marc Webster DO Family Provider Active Dr. Marc Webster DO Primary Care Provider Active Team Status: Inactive Member Role/Relationship Status Dates Dr. Marc Webster DO Primary Care Provider Active Start: March 26, 2025 End: March 26, 2025 Dr. Marc Webster DO Attending Provider Active Start: March 26, 2025 End: March 26, 2025 FOR RECORDS PERTAINING TO PATIENTS WHO ARE OR HAVE BEEN ENROLLED IN A CHEMICAL DEPENDENCY/SUBSTANCEABUSE PROGRAM, SOME INFORMATION MAY BE OMITTED. This clinical summary was aggregated from multiple sources. Caution should be exercised in using it in the provision of clinical care. This summary normalizes information from multiple sources, and as a consequence, information in this document may materially change the coding, format and clinical context of patient data. In addition, data may be omitted in some cases. CLINICAL DECISIONS SHOULD BE BASED ON THE PRIMARY CLINICAL RECORDS. [email or web address] provides no warranty or guarantee of the accuracy or completeness of information in this document.
== END | disposition home or self-care (01) ==
LOC: LABSPEC 15:45
PROVIDERS: PCP Family Medicine; Visit Provider Family Medicine
DX: R21 Rash and other nonspecific skin eruption (principal)
CPT/HCPCS: 88305

== ENCOUNTER → 2025-04-27 | Outpatient (CLI) | payer OTHER, SELFPAY ==
--- OUTSIDE RECORDS SUMMARY | 2025-04-27 09:44 | XMS RPT_ITS | CCD ---
Author Organization [facility] Care Team Providers Care [employer] Name Role Phone REFERRING, LUISSuha NANCY CALVILLO Attending Unavailable Dr. Marc Webster DO Primary Care Provider Dr. Marc Webster DO Attending Provider Dr. Marc Webster DO Referring Provider Ruma Mendoza Attending Provider Marc Webster Primary Care Unavailable Marc Webster Attending Unavailable Marc Webster Primary Care Unavailable Marc Webster Attending Unavailable Marc Webster Primary Care Unavailable Friend Vargas Attending Unavailable Marc Webster Primary Care Unavailable Ruma Santiago Attending Unavailable Marc Webster Referring Unavailable Allergies Allergy Classification Reported Allergen(s) Allergy Type Date of Onset Reaction(s) Facility (4 sources) bee venom protein (honey bee) Allergy to substance 10-07-[address] [facility] (1 source) bee venom protein (honey bee) Drug allergy (disorder) 03-27-2025 [facility] Repository Medications Current Medications Medication Drug Class(es) Dates Sig (Normalized) Sig (Original) buprenorphine 2 mg / naloxone 0.5 mg sublingual film (3 sources) Partial Opioid Agonist, Opioid Antagonist Start: 03-27-2025 Buprenorphine-Nalo xone 2-0.5 mg film Active 1 NMA BUCCAL daily March 27, 2025 12:00am place 1 strip/tab under (each) side of tongue cloNIDine hydrochloride 0.1 mg oral tablet (1 source) Central alpha-2 Adrenergic Agonist Start: 04-11-2025 take 1 tablet by mouth at bedtime as needed Clonidine Hcl 0.1 mg tablet Active 0.1 mg PO AT BEDTIME as needed April 11, 2025 12:00am pantoprazole 40 mg delayed release oral tablet (3 sources) Proton Pump Inhibitor Start: 03-27-2025 take 1 tablet by mouth once daily Pantoprazole 40 mg tablet,delayed release (DR/EC) Active 40 mg PO daily March 27, 2025 12:00am Completed/Discontinued Medications Medication Drug Class(es) Dates Sig (Normalized) Sig (Original) acetaminophen 325 mg / oxyCODONE hydrochloride 5 mg oral tablet (4 sources) Opioid Agonist Start: 10-07-2020 End: 10-10-2020 [...] hydrochloride 300 mg extended release oral tablet (4 sources) Aminoketone Start: 09-26-2020 End: 03-27-2025 take 1 tablet by mouth once daily in the morning Bupropion Hcl (Wellbutrin Xl) 300 mg tablet extended release 24 hr Discontinued 300 mg PO EVERY MORNING September 26, 2020 1:00am March 27, 2025 3:13pm cyclobenzaprine hydrochloride 10 mg oral tablet (4 sources) Muscle Relaxant Start: 04-30-2016 End: 12-08-2017 take 1 tablet by mouth once daily as needed for muscle spasms Cyclobenzaprine 10 MG tablet Discontinued 10 mg PO DAILY NEEDED as needed for Muscle Spasm April 30, 2016 12:00am December 08, 2017 3:53pm metaxalone 800 mg oral tablet (4 sources) Start: 07-26-2016 End: 12-08-2017 take 1 tablet by mouth twice daily as needed for muscle spasms Metaxalone 800 MG tablet Discontinued 800 mg PO TWICE DAILY NEEDED as needed for Muscle Spasm July 26, 2016 1:00am December 08, 2017 3:53pm PARoxetine hydrochloride 20 mg oral tablet (4 sources) Serotonin Reuptake Inhibitor Start: 08-22-2018 End: 09-26-2020 take 1 tablet by mouth once daily Paroxetine Hcl 20 MG tablet Discontinued 20 mg PO DAILY 30 August 22, 2018 1:00am September 26, 2020 2:13pm Problems Problem Classification Problem Date Documented Da te Episodic/Chronic Deficiency and other anemia (2 sources) Anemia; Translations: [Anemia, unspecified] 04-11-2025 Episodic Deficiency and other anemia (1 source) Anemia, unspecified; Translations: [Anemia, unspecified] Onset: 04-11-2025 Episodic Gastrointestinal hemorrhage (2 sources) Rectal hemorrhage; Translations: [Hemorrhage of anus and rectum] Onset: 04-11-2025 04-11-2025 Episodic Immunizations and screening for infectious disease (4 sources) Patient encounter status; Translations: [Encounter for screening for COVID-19] 05-06-2021 Episodic Other and unspecified benign neoplasm (4 sources) Lipoma of back; Translations: [Benign lipomatous neoplasm of skin and subcutaneous tissue of trunk] 10-22-2020 Episodic Other bone disease and musculoskeletal deformities (8 sources) Segmental and somatic dysfunction; Translations: [Segmental and somatic dysfunction of lumbar region] 09-26-2020 Episodic Other skin disorders (1 source) Rash and other nonspecific skin eruption; Translations: [Rash and other nonspecific skin eruption] Onset: 04-10-2025 Episodic Spondylosis; intervertebral disc disorders; other back problems (4 sources) Disorder of lumbar disc; Translations: [Other intervertebral disc degeneration, lumbar region] 12-08-2017 Chronic Comment on above: L3, L4, L5 Results Test Name Value Interpretation Reference Range Facility Gastroenterology Visit Repor ton 04-11-2025 Gastroenterology Visit Report [facility] Gastroenterology [address] [place] [address] OFFICE VISIT Date of Service: 04/11/25 MR#: [id number] Acct: [id number] Name: ELIZABETHJimboGREGORYTREVOR Robin Rep #: [id number] : 1985 Provider: JENNY Caicedo Age/Sex: 39/M [place] [facility] [place]: Signed Intake Vital Signs 05/06/21 17:18 Height 5 ft 11 in Intake Visit Reasons: Rectal bleeding Chief Complaint: Rectal bleeding Allergies bee venom protein (honey bee) Allergy (Verified 03/27/25 15:12) Anaphylaxis Medications ???Medication ???Instructions ???Recorded ???Confirmed ???Type buprenorphine 2 mg-naloxone 0.5 mg 1 film buccal QDAY 03/27/25 08/02/13 History sublingual film pantoprazole 40 mg tablet,delayed 40 mg PO QDAY 03/27/25 03/27/25 H istory release clonidine HCl 0.1 mg tablet 0.1 mg PO QHS PRN 04/11/25 5 History PFSH Medical History PATRICK (obstructive sleep apnea) KHADIJAH (generalized anxiety disorder) Major depressive disorder Rectal bleeding Encounter for screening for COVID-19 Lipoma of back Bulging lumbar disc Segmental and somatic dysfunction of thoracic region Segmental and somatic dysfunction of lumbar region Surgical History History of nasal surgery Hx of vasectomy Family History Father Diabetes Hypertension Other Breast cancer Social History Smoking Status: Never smoker Smokeless tobacco user: chewing tobacco alcohol intake: never substance use type: does not use what type of physical activity do you participate in: none HPI HPI Chief Complaint: Rectal bleeding Details: TREVOR KNUTSON, is a 39 M who presents to the office today for establishment. Patient referred from primary care physician for rectal bleeding worsening over the past 6 months. Patient has bleeding with bowel movements about 90% of the time. On occasion he will have dark red clots but it is typically bright red. He denies associated anal/rectal pain. He has bowel movements daily without straining. On occasion he will have loose stools. Patient does endorse that about a year ago he had about a 6 months period Of sporadic vomiting with no nausea. No history of colonoscopy. ROS Const Constitutional: Positive for fatigue; No fever(s) or weight change ENT ENT: No difficulty swallowing Gastro GI: Positive for bloating, excessive flatus and Blood in stool; No abdominal pain, belching, change in bowel habits, change in stool character, coffee ground emesis, constipation, cramping, diarrhea, heartburn, difficulty swallowing, feeling full early, incontinent of stools, Vomiting blood/hematemesis, loose stools, Black,tarry stools, nausea/dyspepsia, pain with swallowing, vomiting or other Musc Musculoskeletal: Positive for back pain and stiffness; No joint pain Skin Skin: Positive for itchy eyes and rash; No yellowing of the eye Psych Psychiatric: No anxiety and No depression Endo Endocrine: Positive for fatigue; No weight change Aller/Imm Allergy/Immunologic: Positive for itchy eyes Payam/Lymp Hematologic/Lymphati c: No easy bleeding or easy bruising Exam Const General: cooperative, healthy appearing and comfortable Orientation: alert HENMT Head: normal to inspection Eyes General: appearance normal, both eyes and all related structures Neck Neck: normal visual inspection Chest Chest palpation inspection: normal inspection of the chest Resp Effort Inspection: normal respiratory effort Cardio Rate: regular rate Rhythm: regular rhythm GI Inspection: normal to inspection Auscultation: normal bowel sounds Palpation: soft and nontender Assessment and Plan Assessment and Plan (1) Rectal hemorrhage: (2) Anemia: Status: Acute Plan: Trevor is a 39-year-old male patient here today for worsening rectal bleeding over the past 6 months. Patient has bright red blood in his stool with 90% of his bowel movements. He does note dark red clots on occasion. He denies constipation. Patient's primary care provider did perform a rectal exam which did not reveal any hemorrhoids. Recent CBC showing a slightly low hemoglobin of 10.9. Patient's previous hemoglobin from 2014 was 14.3. Due to the persistency of the blood in his stool and low hemoglobin he will undergo colonoscopy for assessment of his lower GI tract. Differential diagnosis does include internal hemorrhoids, anal fissure, diverticulosis or ulcerative colitis. Will repeat CBC in 2 weeks to monitor his hemoglobin otherwise we will plan for colonoscopy. - Colonoscopy - Repeat CBC in 2 weeks - Follow-up after colonoscopy Orders: Orders CBC W (more content not included)... Normal [facility] Surgery Specimen Level George 04-04-2025 Surgery Specimen Level IV Patient Age/Sex Location Account Attending Physician ZENIATREVOR Rboin 39/[facility] [id number] Dr. Marc Webster, Specimen: [id number] Received: 04/04/25 Status: TATYANA Horn Num: [id number] Spec Type: Lesion Subm Dr: Dr. Marc Webster, DO HEAD OPERATION: Punch biopsy PRE-OP DIAGNOSIS: Chronic dark, red plaque like rash, psoriasis TISSUE SUBMITTED: A- 3mm punch biopsy right mid back MICROSCOPIC DIAGNOSIS A. Skin, right mid back, punch biopsy: - Superficial perivascular chronic inflammation with slight hyperkeratosis and patchy parakeratosis - see note. - PASD stain is negative for fungal organisms. 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 Eosinophils and neutrophils are lacking. Although psoriasis cannot be excluded, the histologic features typical of psoriasis are not observed. The differential diagnosis includes other causes of spongiotic dermatitis, fungal infection, and other less common entities. Clinical correlation is necessary. MICROSCOPIC DESCRIPTION Slides are reviewed. All matched controls reacted appropriately. These tests were developed and their performance characteristics determined by [facility]. They may not have been cleared or approved by the U.[place]. Food and Drug Administration. The FDA has determined that such clearance or approval is not necessary.??? The above immunohistochemical? ??markers and/or special stains have been reviewed by the Pathologist. GROSS DESCRIPTION A. Received in formalin labeled with the patient's name and date of . Designated as R back is a 0.3 x 0.2 cm pierre skin punch excised to a maximum depth of 0.1 cm. The resection margin is inked green. Prior 1 cassette. [place] 04/05/2025 [facility]:[id number] ,[id number] Patient Age/Sex Location Account Attending Physician TREVOR KNUTSON 39/M [facility] [id number] Dr. Marc Webster, DO Signed (signature on file) Dr. Brenna Westbrook MD 04/12/[address] [facility] Comment on above: Performed By: #### P SUIV #### [facility] [address] [place], [place], [id number] Absolute lymphocyte countOrd ered By: Marc Webster on 03-26-2025 Lymphocytes Auto (Unsp spec) [#/Vol] 1.32 10*3/uL 0.83-4.51 [facility] Absolute neutrophil countOrd ered By: Marc Webster on 03-26-2025 Neutrophils (Bld) [#/Vol] 2.5 10*3/uL 2.0-7.7 [facility] Anion gap in Serum or Plasma Ordered By: Marc Webster on 03-26-2025 Anion gap [Moles/Vol] 14 mmol/L 5-15 [facility] Automated lymphocyte count a s percentage of total leukocytesOrdered By: Marc Webster on 03-26-2025 Lymphocytes/100 WBC Auto (Unsp spec) 30.9 % 19-41 [facility] BUN/creatinine ratioOrdered By: Marc Webster on 03-26-2025 Urea nitrogen/Creatinine [Mass ratio] 17.3 mg/mg 10-20 [facility] Basophil percentageOrdered B y: Marc Webster on 03-26-2025 Basophils/100 WBC (Bld) 0.7 % 0-1 [facility] Bilirubin, totalOrdered By: Marc Webster on 03-26-2025 Bilirubin [Mass/Vol] 0.27 mg/dL 0.00-1.30 [facility] CBC W/Diff, Automatedon Absolute Lymph 1.32 X10 3/uL Normal 0.83-4.51 [facility] Comment on above: Performed By: #### L 101.9900, L501.9520, L501.9985, L501.6710, L500.4050, L100.0100 #### [facility] [address] [place], [address] Absolute Neut 2.5 X10 3/uL Normal 2.0-7.7 [facility] Comment on above: Performed By: #### L 101.9900, L501.9520, L501.9985, L501.6710, L500.4050, L100.0100 #### [facility] [address] [place], [address] Basophils/100 WBC (Bld) 0.7 % Normal 0-1 [facility] Comment on above: Performed By: #### L 101.9900, L501.9520, L501.9985, L501.6710, L500.4050, L100.0100 #### [facility] [address] [place], [address] Eosinophils/100 WBC (Bld) 1.2 % Normal 0-5 [facility] Comment on above: Performed By: #### L 101.9900, L501.9520, L501.9985, L501.6710, L500.4050, L100.0100 #### [facility] [address] [place], [address] Erythrocyte distribution width (RBC) [Ratio] 12.5 % Normal 11.6-14.6 [facility] Comment on above: Performed By: #### L 101.9900, L501.9520, L501.9985, L501.6710, L500.4050, L100.0100 #### [facility] [address] [place], [address] Hematocrit (Bld) [Volume fraction] 33.0 % Low 40-54 [facility] Comment on above: Performed By: #### L 101.9900, L501.9520, L501.9985, L501.6710, L500.4050, L100.0100 #### [facility] [address] [place], [address] Hemoglobin (Bld) [Mass/Vol] 10.9 g/dL Low 13.0-16.5 [facility] Comment on above: Performed By: #### L 101.9900, L501.9520, L501.9985, L501.6710, L500.4050, L100.0100 #### [facility] [address] [place], [address] IG% 0.200 Normal 0.0-0.9 [facility] Comment on above: Result Comment: IG% - Immature Granulocytes (promyelocytes, myelocytes and metamyelocytes) > 1% indicates that a LEFT SHIFT is Present. Performed By: #### L 101.9900, L501.9520, L501.9985, L501.6710, L500.4050, L100.0100 #### [facility] [address] [place], [address] Lymphocytes/100 WBC (Bld) 30.9 % Normal 19-41 [facility] Comment on above: Performed By: #### L 101.9900, L501.9520, L501.9985, L501.6710, L500.4050, L100.0100 #### [facility] [address] [place], [address] MCH (RBC) [Entitic mass] 30.6 pg Normal 27.0-32.0 [facility] Comment on above: Performed By: #### L 101.9900, L501.9520, L501.9985, L501.6710, L500.4050, L100.0100 #### [facility] [address] [place], [address] MCHC (RBC) [Mass/Vol] 33.0 g/dL Normal 32-36 [facility] Comment on above: Performed By: #### L 101.9900, L501.9520, L501.9985, L501.6710, L500.4050, L100.0100 #### [facility] [address] [place], [address] MCV (RBC) [Entitic vol] 92.7 fL Normal 80-94 [facility] Comment on above: Performed By: #### L 101.9900, L501.9520, L501.9985, L501.6710, L500.4050, L100.0100 #### [facility] [address] [place], [address] Monocytes/100 WBC (Bld) 8.0 % Normal 0-10 [facility] Comment on above: Performed By: #### L 101.9900, L501.9520, L501.9985, L501.6710, L500.4050, L100.0100 #### [facility] [address] [place], [address] Neutrophils/100 WBC (Bld) 59.0 % Normal 47-70 [facility] Comment on above: Performed By: #### L 101.9900, L501.9520, L501.9985, L501.6710, L500.4050, L100.0100 #### [facility] [address] [place], [address] Nucleated RBC (Bld) [#/Vol] 0 10*3/uL Normal 0-5 [facility] Comment on above: Performed By: #### L 101.9900, L501.9520, L501.9985, L501.6710, L500.4050, L100.0100 #### [facility] [address] [place], [address] Platelet mean volume (Bld) [Entitic vol] 9.9 fL Normal 6.2-12.0 [facility] Comment on above: Performed By: #### L 101.9900, L501.9520, L501.9985, L501.6710, L500.4050, L100.0100 #### [facility] [address] [place], [address] Platelets (Bld) [#/Vol] 337 10*3/uL Normal 150-450 [facility] Comment on above: Performed By: #### L 101.9900, L501.9520, L501.9985, L501.6710, L500.4050, L100.0100 #### [facility] [address] [place], [address] RBC (Bld) [#/Vol] 3.56 10*6/uL Low 4.6-6.[address] [facility] Comment on above: Performed By: #### L 101.9900, L501.9520, L501.9985, L501.6710, L500.4050, L100.0100 #### [facility] [address] [place], [address] RDW SD 43.0 fl Normal 35.1-43.9 [facility] Comment on above: Performed By: #### L 101.9900, L501.9520, L501.9985, L501.6710, L500.4050, L100.0100 #### [facility] [address] [place], [address] WBC (Bld) [#/Vol] 4.3 10*3/uL Low 4.4-11.0 [facility] Comment on above: Performed By: #### L 101.9900, L501.9520, L501.9985, L501.6710, L500.4050, L100.0100 #### [facility] [address] [place], [address] CRPon 03-26-2025 C-REACTIVE PROT < 3.00 Normal 0.0-3.0 [facility] Comment on above: Performed By: #### L 101.9900, L501.9520, L501.9985, L501.6710, L500.4050, L100.0100 #### [facility] [address] [place], [address] Carbon dioxide, total [Moles /volume] in Central venous bloodOrdered By: Marc Webster on 03-26-2025 CO2 [Moles/Vol] 24.2 mmol/L 21.0-32.0 [facility] Chloride assayOrdered By: Orly Webster on 03-26-2025 Chloride [Moles/Vol] 99 mmol/L 98-108 [facility] Comprehensive Metabolic Prof ilon 03-26-2025 Albumin [Mass/Vol] 4.8 g/dL Normal 3.5-5.0 [facility] Comment on above: Performed By: #### L 101.9900, L501.9520, L501.9985, L501.6710, L500.4050, L100.0100 #### [facility] [address] [place], [address] Albumin/Globulin [Mass ratio] 1.8 {ratio} Normal 0.9-2.4 [facility] Comment on above: Performed By: #### L 101.9900, L501.9520, L501.9985, L501.6710, L500.4050, L100.0100 #### [facility] [address] [place], [address] ALK PHOS 64 U/L Normal 40-129 [facility] Comment on above: Performed By: #### L 101.9900, L501.9520, L501.9985, L501.6710, L500.4050, L100.0100 #### [facility] [address] [place], [address] ALT [Catalytic activity/Vol] 31 U/L Normal <=46 [facility] Comment on above: Performed By: #### L 101.9900, L501.9520, L501.9985, L501.6710, L500.4050, L100.0100 #### [facility] [address] [place], [address] AST [Catalytic activity/Vol] 22 U/L Normal <=37 [facility] Comment on above: Performed By: #### L 101.9900, L501.9520, L501.9985, L501.6710, L500.4050, L100.0100 #### [facility] [address] [place], [address] Bilirubin [Mass/Vol] 0.27 mg/dL Normal 0.00-1.30 [facility] Comment on above: Performed By: #### L 101.9900, L501.9520, L501.9985, L501.6710, L500.4050, L100.0100 #### [facility] [address] [place], [address] BUN/CRE 17.3 RATIO Normal 10-20 [facility] Comment on above: Performed By: #### L 101.9900, L501.9520, L501.9985, L501.6710, L500.4050, L100.0100 #### [facility] [address] [place], [address] Calcium [Mass/Vol] 9.4 mg/dL Normal 7.6-11.0 [facility] Comment on above: Performed By: #### L 101.9900, L501.9520, L501.9985, L501.6710, L500.4050, L100.0100 #### [facility] [address] [place], [address] Chloride [Moles/Vol] 99 mmol/L Normal 98-108 [facility] Comment on above: Performed By: #### L 101.9900, L501.9520, L501.9985, L501.6710, L500.4050, L100.0100 #### [facility] [address] [place], [address] CO2 [Moles/Vol] 24.2 mmol/L Normal 21.0-32.0 [facility] Comment on above: Performed By: #### L 101.9900, L501.9520, L501.9985, L501.6710, L500.4050, L100.0100 #### [facility] [address] [place], [address] Creatinine [Mass/Vol] 0.81 mg/dL Normal 0.70-1.20 [facility] Comment on above: Performed By: #### L 101.9900, L501.9520, L501.9985, L501.6710, L500.4050, L100.0100 #### [facility] [address] [place], [address] GAP 14 Normal 5-15 [facility] Comment on above: Performed By: #### L 101.9900, L501.9520, L501.9985, L501.6710, L500.4050, L100.0100 #### [facility] [address] [place], [address] GFR/1.73 sq M.predicted among non-blacks MDRD (S/P/Bld) [Vol rate/Area] 116 mL/min/{1.73_m2} Normal >60 [facility] Comment on above: Result Comment: mL/m in/1.73m2 CKD-EPI Creatinine Equation (2020) Performed By: #### L 101.9900, L501.9520, L501.9985, L501.6710, L500.4050, L100.0100 #### [facility] [address] [place], [address] Globulin (S) [Mass/Vol] 2.6 g/dL Normal 2.2-4.2 [facility] Comment on above: Performed By: #### L 101.9900, L501.9520, L501.9985, L501.6710, L500.4050, L100.0100 #### [facility] [address] [place], [address] Glucose [Mass/Vol] 99 mg/dL Normal 70-99 [facility] Comment on above: Performed By: #### L 101.9900, L501.9520, L501.9985, L501.6710, L500.4050, L100.0100 #### [facility] [address] [place], [address] Potassium [Moles/Vol] 3.5 mmol/L Normal 3.3-5.1 [facility] Comment on above: Performed By: #### L 101.9900, L501.9520, L501.9985, L501.6710, L500.4050, L100.0100 #### [facility] [address] [place], [address] Sodium [Moles/Vol] 137 mmol/L Normal 133-145 [facility] Comment on above: Performed By: #### L 101.9900, L501.9520, L501.9985, L501.6710, L500.4050, L100.0100 #### [facility] [address] [place], [address] T PROT 7.4 g/dL Normal 5.9-8.4 [facility] Comment on above: Performed By: #### L 101.9900, L501.9520, L501.9985, L501.6710, L500.4050, L100.0100 #### [facility] [address] [place], [address] Urea nitrogen [Mass/Vol] 14 mg/dL Normal 4-19 [facility] Comment on above: Performed By: #### L 101.9900, L501.9520, L501.9985, L501.6710, L500.4050, L100.0100 #### [facility] [address] [place], [address] Eosinophil percentageOrdered By: Marc Webster on 03-26-2025 Eosinophils/100 WBC (Bld) 1.2 % 0-5 [facility] Erythrocyte Sed Rateon 03-26 SED RATE 4 mm/hr Normal 0-20 [facility] Comment on above: Performed By: #### L 101.9900, L501.9520, L501.9985, L501.6710, L500.4050, L100.0100 #### [facility] [address] [place], [address] Erythrocyte distribution wid th ratioOrdered By: Marc Webster on 03-26-2025 Erythrocyte distribution width (RBC) [Ratio] 12.5 % 11.6-14.6 [facility] Erythrocyte distribution wid th standard deviationOrdered By: Marc Webster on 03-26-2025 Erythrocyte distribution width (RBC) [Ratio] 43.0 fl 35.1-43.9 [facility] Erythrocyte sedimentation ra teOrdered By: Marc Webster on 03-26-2025 ESR (Bld) [Velocity] 4 mm/h 0-20 [facility] Glomerular filtration rate ( GFR) estimation/1.73 sq m using serum, plasma, or whole bOrdered By: Marc Webster on 03-26-2025 GFR/1.73 sq M.predicted among non-blacks MDRD (S/P/Bld) [Vol rate/Area] 116 mL/min/{1.73_m2} >60 [facility] Comment on above: mL/min/1.73m2 CKD-EP I Creatinine Equation (2020) Hematocrit Auto (Bld) [Volum e fraction]Ordered By: Marc Webster on 03-26-2025 Hematocrit (Bld) [Volume fraction] 33.0 % Low 40-54 [facility] Hemoglobin A1con 03-26-2025 HbA1c (Bld) [Mass fraction] 5.7 % Normal <=5.6 [facility] Comment on above: Result Comment: Norm al < 5.7 % Prediabetic 5.7 - 6.4 % Diabetic >or= 6.5 % Please note range changes. Performed By: #### L 101.9900, L501.9520, L501.9985, L501.6710, L500.4050, L100.0100 #### [facility] [place], [address] Hemoglobin A1c percentageOrd ered By: Marc Webster on 03-26-2025 HbA1c (Bld) [Mass fraction] 5.7 % <5.7 [facility] Comment on above: Normal < 5.7 % Predi abetic 5.7 - 6.4 % Diabetic >or= 6.5 % Please note range changes. Hemoglobin measurementOrdere d By: Marc Webster on 03-26-2025 Hemoglobin (Bld) [Mass/Vol] 10.9 g/dL Low 13.0-16.5 [facility] Immature granulocytes/100 WB C Auto (Bld)Ordered By: Marc Webster on 03-26-2025 Immature granulocytes/100 WBC (Bld) 0.200 % 0.0-0.9 [facility] Comment on above: IG% - Immature Granu locytes (promyelocytes, myelocytes and metamyelocytes) > 1% indicates that a LEFT SHIFT is Present. Laboratory - Chemistry and C hemistry - challengeOrdered By: Marc Webster on 03-26-2025 AST [Catalytic activity/Vol] 22 U/L <38 [facility] MCV (mean corpuscular volume ) determinationOrdered By: Marc Webster on 03-26-2025 MCV (RBC) [Entitic vol] 92.7 fL 80-94 [facility] Mean corpuscular hemoglobin (MCH) determinationOrdered By: Marc Webster on 03-26-2025 MCH (RBC) [Entitic mass] 30.6 pg 27.0-32.0 [facility] Mean corpuscular hemoglobin concentration (MCHC) determinationOrdered By: Marc Webster on 03-26-2025 MCHC (RBC) [Mass/Vol] 33.0 g/dL 32-36 [facility] Mean platelet volume determi nationOrdered By: Marc Webster on 03-26-2025 Platelet mean volume (Bld) [Entitic vol] 9.9 fL 6.2-12.0 [facility] Monocyte percentageOrdered B y: Marc Webster on 03-26-2025 Monocytes/100 WBC (Bld) 8.0 % 0-10 [facility] Neutrophil percentageOrdered By: Marc Webster on 03-26-2025 Neutrophils/100 WBC (Bld) 59.0 % 47-70 [facility] Nucleated red blood cell per centageOrdered By: Marc Webster on 03-26-2025 Nucleated RBC/100 WBC (Bld) [Ratio] 0 % 0-5 [facility] Platelet countOrdered By: Orly Webster on 03-26-2025 Platelets (Bld) [#/Vol] 337 10*3/uL 150-450 [facility] Potassium measurement (mass/ volume)Ordered By: Marc Webster on 03-26-2025 Potassium (Unsp spec) [Mass/Vol] 3.5 mmol/L 3.3-5.1 [facility] RBC Auto (Bld) [#/Vol]Ordere d By: Marc Webster on 03-26-2025 RBC (Bld) [#/Vol] 3.56 10*6/uL Low 4.6-6.[address] [facility] Serum creatinine measurement (mass/volume)Ordered By: Marc Webster on 03-26-2025 Creatinine [Mass/Vol] 0.81 mg/dL 0.70-1.20 [facility] Serum globulin measurementOr dered By: Marc Webster on 03-26-2025 Globulin (S) [Mass/Vol] 2.6 g/dL 2.2-4.2 [facility] Serum glucose measurement (m ass/volume)Ordered By: Marc Webster on 03-26-2025 Glucose [Mass/Vol] 99 mg/dL 70-99 [facility] Serum or plasma C reactive p rotein measurement (mass/volume)Ordered By: Marc Webster on 03-26-2025 CRP [Mass/Vol] mg/L 0.0-3.0 [facility] Serum or plasma alanine blackwell otransferase (ALT) measurementOrdered By: Marc Webster on 03-26-2025 ALT [Catalytic activity/Vol] 31 U/L <47 [facility] Serum or plasma albumin jon urement (mass/volume)Ordered By: Marc Webster on 03-26-2025 Albumin [Mass/Vol] 4.8 g/dL 3.5-5.0 [facility] Serum or plasma albumin/glob ulin mass ratioOrdered By: Marc Webster on 03-26-2025 Albumin/Globulin [Mass ratio] 1.8 {ratio} 0.9-2.4 [facility] Serum or plasma alkaline fernando sphatase measurementOrdered By: Marc Webster on 03-26-2025 ALP [Catalytic activity/Vol] 64 U/L 40-129 [facility] Serum or plasma calcium jon urement (mass/volume)Ordered By: Marc Webster on 03-26-2025 Calcium [Mass/Vol] 9.4 mg/dL 7.6-11.0 [facility] Serum or plasma urea nitroge n measurement (mass/volume)Ordered By: Marc Webster on 03-26-2025 Urea nitrogen [Mass/Vol] 14 mg/dL 4-19 [facility] Sodium levelOrdered By: Marc Webster on 03-26-2025 Sodium [Moles/Vol] 137 mmol/L 133-145 [facility] TSH DL <= 0.005 mIU/L QnOrde red By: Marc Webster on 03-26-2025 TSH Qn 1.520 uIU/mL 0.300-4.200 [facility] Thyroid Stim Hormone (TSH)on 03-26-2025 TSH 1.520 uIU/mL Normal 0.300-4.200 [facility] Comment on above: Performed By: #### L 101.9900, L501.9520, L501.9985, L501.6710, L500.4050, L100.0100 #### [facility] [place], [address] Total proteinOrdered By: Irina ansley Darin on 03-26-2025 Protein [Mass/Vol] 7.4 g/dL 5.9-8.4 [facility] White blood cell (WBC) count Ordered By: Marc Webster on 03-26-2025 WBC (Bld) [#/Vol] 4.3 10*3/uL Low 4.4-11.0 [facility] MRI KNEE W/O CONTRAST RIGHTo n [...] 12/24/2022 2:54:16 PM Ordering Provider: SETH REFERRING [facility] ([place] Encounters Encounter Date Encounter Type Care Provider Facility Start: 05-17-2025 ambulatory [facility] Facility: [facility] Start: 04-11-2025 End: 04-11-2025 Patient encounter procedure Ruma ALVARADO -[facility] Work Phone: Start: 04-11-2025 End: 04-11-[address] Marc Webster DO Work Phone: -[facility] Start: 04-04-2025 End: 04-04-[address] Marc Webster DO Work Phone: -Laboratory Specimen Start: 04-04-2025 End: 04-04-[address] Marc Webster DO -Laboratory Specimen Work Phone: Start: 04-04-2025 End: 04-04-2025 ambulatory Marc Webster Facility:[facility] Start: 03-31-2025 Encounter for genera l adult medical examination without abnormal findings Marc Webster [facility] Start: 03-26-2025 End: 03-26-[address] Marc Webster DO Work Phone: -[facility] Start: 03-26-2025 End: 03-26-[address] Marc Webster DO -[facility] Start: 03-26-2025 End: 03-26-2025 ambulatory Marc Webster Facility:[facility] Start: 12-24-2022 End: 12-25-2022 ambulatory PHY WO ID REFERRING Facility:B Start: 12-24-2022 End: 12-24-2022 Patient encounter procedure PHY WO ID REFERRING [facility] Plan of Treatment Date Care Activity Detail Author CBC W Auto Differential panel - Blood [facility] Payers Date Payer Category Payer Self-pay [id number] 2025 Unknown [id number] 2022 Unknown [id number] 2016 Unknown [facility] [id number] [facility] 1985 Unknown [id number] Unknown [id number] Unknown [id number] Unknown [id number] Unknown [id number] Social History Date Type Detail [facility] Work Phone: Start: 1985 Sex Assigned At Male A [facility] Tobacco smoking status No Smokin g Status Entered [facility] Start: 03-27-2025 Tobacco smoking stat us NHIS Never smoked tobacco (finding) [facility] Start: 10-02-2020 Tobacco Use Tobacco Use [facility] Progress note 04-11-2025 Note Date & Type Note Facility 04-11-2025 Progress note [facility] Progress note 04-11-2025 Note Date & Type Note Facility 04-11-2025 Progress note Note Date/Time April 11, 2025 3:05pm [facility] [address] [place] [address] OFFICE VISIT Date of Service: 04/11/25 MR#: [id number] Acct: [id number] Name: TREVOR KNUTSON Rep #: [id number] : 1985 Provider: JENNY Caicedo Age/Sex: 39/M [place] [facility] [place] Status: Signed Intake Vital Signs 05/06/21 17:18 Height 5 ft 11 in Intake Visit Reasons: Rectal bleeding Chief Complaint: Rectal bleeding Allergies bee venom protein (honey bee) Allergy (Verified 03/27/25 15:12) Anaphylaxis Medications ?Medication ?Instructions ?Recorded ?Confirmed ?Type buprenorphine 2 mg-naloxone 0.5 mg 1 film buccal QDAY 03/27/25 03/27/25 History sublingual film pantoprazole 40 mg tablet,delayed 40 mg PO QDAY 03/27/25 History release clonidine HCl 0.1 mg tablet 0.1 mg PO QHS PRN 04/11/25 04/11/25 History PFSH Medical History PATRICK (obstructive sleep apnea) KHADIJAH (generalized anxiety disorder) Major depressive disorder Rectal bleeding Encounter for screening for COVID-19 Lipoma of back Bulging lumbar disc Segmental and somatic dysfunction of thoracic region Segmental and somatic dysfunction of lumbar region Surgical History History of nasal surgery Hx of vasectomy Family History Father Diabetes Hypertension Other Breast cancer Social History Smoking Status: Never smoker Smokeless tobacco user: chewing tobacco alcohol intake: never substance use type: does not use what type of physical activity do you participate in: none HPI HPI Chief Complaint: Rectal bleeding Details: TREVOR KNUTSON, is a 39 M who presents to the office today for establishment. Patient referred from primary care physician for rectal bleeding worsening over the past 6 months. Patient has bleeding with bowel movements about 90% of the time. On occasion he will have dark red clots but it is typically bright red. He denies associated anal/rectal pain. He has bowel movements daily without straining. On occasion he will have loose stools. Patient does endorse that about a year ago he had about a 6 months period Of sporadic vomiting with no nausea. No history of colonoscopy. ROS Const Constitutional: Positive for fatigue; No fever(s) or weight change ENT ENT: No difficulty swallowing Gastro GI: Positive for bloating, excessive flatus and Blood in stool; No abdominal pain, belching, change in bowel habits, change in stool character, coffee ground emesis, constipation, cramping, diarrhea, heartburn, difficulty swallowing, feeling full early, incontinent of stools, Vomiting blood/hematemesis, loose stools, Black,tarry stools, nausea/dyspepsia, pain withswallowing, vomiting or other Musc Musculoskeletal: Positive for back pain and stiffness; No joint pain Skin Skin: Positive for itchy eyes and rash; No yellowing of the eye Psych Psychiatric: No anxiety and No depression Endo Endocrine: Positive for fatigue; No weight change Aller/Imm Allergy/Immunologic: Positive for itchy eyes Payam/Lymp Hematologic/Lymphatic: No easy bleeding or easy bruising Exam Const General: cooperative, healthy appearing and comfortable Orientation: alert [facility] Head: normal to inspection Eyes General: appearance normal, both eyes and all related structures Neck Neck: normal visual inspection Chest Chest palpation & inspection: normal inspection of the chest Resp Effort & Inspection: normal respiratory effort Cardio Rate: regular rate Rhythm: regular rhythm GI Inspection: normal to inspection Auscultation: normal bowel sounds Palpation: soft and nontender Assessment and Plan Assessment and Plan (1) Rectal hemorrhage: (2) Anemia: Status: Acute Plan: Trevor is a 39-year-old male patient here today for worsening rectal bleeding over the past 6 months. Patient has bright red blood in his stool with 90% of his bowel movements. He does note dark red clots on occasion. He denies constipation. Patient's primary care provider did perform a rectal exam which did not reveal any hemorrhoids. Recent CBC showing a slightly low hemoglobin of10.9. Patient's previous hemoglobin from 2013 was 14.3. Due to the persistencyof the blood in his stool and low hemoglobin he will undergo colonoscopy for assessment of his lower GI tract. Differential diagnosis does include internal hemorrhoids, anal fissure, diverticulosis or ulcerative colitis. Will repeat CBC in 2 weeks to monitor his hemoglobin otherwise we will plan for colonoscopy. - Colonoscopy - Repeat CBC in 2 weeks - Follow-up after colonoscopy Orders: Orders CBC W/Diff, Automated Today D64.9 - Anemia, unspecified Coding Level of Care Code Off vis,new,level 4 Diagnoses Rectal hemorrhage K62.5 Anemia D64.9 04/11/25 1505 <Electronically signed by Ruma ALVARADO> Date _ Ruma ALVARADO Cosigner Signature: Date (if applicable) CC: ~ [facility] Work Phone: Clinical Note 12-24-2022 Note Date & Type [...] 12/24/2022 2:54:16 PM Ordering Provider: SETH REFERRING [facility] Clinical Note 12-24-2022 Note Date & Type [...] Sign Date: 12/24/2022 2:54:16 PM Ordering Provider: LUISY REFERRING [facility] Evaluation + Plan note Note Date & Type Note Facility Evaluation + Plan note No data available for this section [facility] Evaluation note Note Date & Type Note Facility Evaluation note No assessment information availa ble [facility] Work Phone: Evaluation note Note Date & Type Note Facility Evaluation note Diagnosis Onset Date Resolution Anemia acute April 11, 2 025 2:31pm Rectal hemorrhage noneactive April 11, 2025 2:31pm [facility] Work Phone: Hospital Discharge instructions Note Date & Type Note Facility Hospital Discharge instructions No data available for this section [facility] Reason for referral (narrative) Note Date & Type Note Facility Reason for referral (narrative) No reason for referral information available [facility] Work Phone: Family History No Family History Records Found Relationship Condition Age at Onset Recorded Date/T bony Not Specified Malignant neoplasm of breast Unknown father Diabetes mellitus Unknown Hypertension Unknown Summary Purpose Advance Directives No Advanced Directives Records Found Advance Directive Response Recorded Date/ Time Advance Directives No April 5:18pm Chief Complaint and Reason for Visit Chief Complaint Admit Date Rectal bleeding April 11, 2025 2: 31pm Reason for Visit Admit Date Anemia April 11, 2025 2: 31pm Rectal hemorrhage April 11, 2025 2: 31pm Additional Source Comments Goals (unrecognized section and content) Goals may be documented in a n alternate section No data available for this sectionGoals may be documented in an alternate sectionGoals may be documented in an alternate sectionGoals may be documented in an alternate section (unrecognized sect ion and content) No Status Records FoundNo Status Records Found INFORMATION SOURCE (unrecogn ized section and content) DATE CREATED AUTHOR 12/31/2022 [facility] ([place]) DATE CREATED AUTHOR AUTHOR'S ORGANIZ ATION 04/19/2025 [facility] Care Teams (unrecognized sec tion and content) Team Status: Active Member Role/Relationship Status Dates Dr. Marc Webster , DO Family Provider Active Dr. Marc Webster [...] BE BASED ON THE PRIMARY CLINICAL RECORDS. [facility] [employer] provides no warranty or guarantee of the accuracy or completeness of information in this document.
[2025-04-27 10:58] LABS: Hematocrit 32.2 % (40-54); Hemoglobin 10.7 g/dL (13.0-16.5); Immature Granulocytes Count 0.000 X10^3/uL (0.0-0.0); Mean Corp Hgb Conc 33.2 g/dL (32-36); Mean Corpuscular Volume 93.9 fL (80-94); Mean Platelet Vol. 9.5 fl (6.2-12.0); NRBC Flagged by Analyzer 0 % (0-5); Platelet Count 324 K/mm3 (150-450); RBC Distribution Width CV 12.5 % (11.6-14.6); RBC Distribution Width SD 43.9 fl (35.1-43.9); Red Blood Count 3.43 M/mm3 (4.6-6.2); White Blood Count 3.8 K/mm3 (4.4-11.0)
== END | disposition home or self-care (01) ==
LOC: LAB 09:42
PROVIDERS: PCP Family Medicine; Referring Provider Student in an Organized Health Care Education/Training Program; Visit Provider Student in an Organized Health Care Education/Training Program
DX: D64.9 Anemia, unspecified (principal)
CPT/HCPCS: 85025

== ENCOUNTER → 2025-05-03 | Outpatient (CLI) | payer OTHER, SELFPAY ==
[2025-05-03 18:30] LABS: Ferritin 226 ng/mL (37-417); Iron 103 ug/dL (65-175)
== END | disposition home or self-care (01) ==
LOC: BFHLAB 15:56
PROVIDERS: PCP Family Medicine; Visit Provider Family Medicine
DX: D64.9 Anemia, unspecified (principal)
CPT/HCPCS: 36415; 82728; 83540

== ENCOUNTER 2025-05-17 13:05 | Day surgery (SDC) | payer OTHER, SELFPAY ==
[2025-05-17] VITALS (11 sets, daily range): BP systolic 101–124; BP diastolic 64–94; PULSE 64–88; RESP 14–16; TEMP 36.1–36.6; O2SAT 97–100; BMI 29.7
--- NOTE | 2025-05-17 13:18 | PCM.HP.STD ---
HPI - General General Date of Admission: 05/17/25 Date of Service: 05/17/25 Chief Complaint: lower gi bleeding HPI Narrative TREVOR KNUTSON, is a 39 M who presents with the Chief Complaint: Rectal bleeding Patient referred from primary care physician for rectal bleeding worsening over the past 6 months. Patient has bleeding with bowel movements about 90% of the time. On occasion he will have dark red clots but it is typically bright red. He denies associated anal/rectal pain. He has bowel movements daily without straining. On occasion he will have loose stools. Patient does endorse that about a year ago he had about a 6 months period Of sporadic vomiting with no nausea. No history of colonoscopy. CBC W/Diff, Automated Today D64.9 - Anemia, unspecified [facility] Medical History Wears glasses Wears contact lenses Rash History of GI bleed Syncope Gastric reflux Non-smoker CPAP (continuous positive airway pressure) dependence Sleep apnea PATRICK (obstructive sleep apnea) KHADIJAH (generalized anxiety disorder) Major depressive disorder Rectal bleeding Encounter for screening for COVID-19 Lipoma of back Bulging lumbar disc Segmental and somatic dysfunction of thoracic region Segmental and somatic dysfunction of lumbar region Home Medications Medication Instructions Recorded Last Taken Type buprenorphine 2 mg-naloxone 0.5 mg 1 film buccal QDAY 03/27/25 Unknown History sublingual film pantoprazole 40 mg tablet,delayed 40 mg PO QDAY 03/27/25 Unknown History release clonidine HCl 0.1 mg tablet 0.1 mg PO QHS PRN RESTLESSNESS 04/11/25 Unknown History clobetasol 0.05 % topical cream 1 applic topical BID PRN rash 05/15/25 Unknown History Allergy/AdvReac Type Severity Reaction Status Date / Time bee venom protein (honey bee) Allergy Anaphylaxis Verified 03/27/25 15:12 Family History Father Diabetes Hypertension Other Breast cancer Surgical History History of meniscectomy of right knee History of nasal surgery Hx of vasectomy Social History Smoking Status: Never smoker Smokeless tobacco user: chewing tobacco alcohol intake: never substance use type: does not use what type of physical activity do you participate in: none ROS Constitutional Constitutional: Denies fatigue, fever(s), poor appetite, weight gain or weight loss Gastrointestinal Gastrointestinal: Denies belching, bloating, change in bowel habits, change in stool character, chewing difficulty, coffee ground emesis, constipation, cramping, diarrhea, dyspepsia, dysphagia, early satiety, excessive flatus, fecal incontinence, heartburn, hematemesis, hematochezia, hemorrhoids, loose stools, melena, nausea, odynophagia, rectal bleeding, tenesmus, vomiting or weight changes Physical Exam Const alert, oriented x3, no apparent distress and healthy appearing General Appearance: cooperative GI normal to inspection, nondistended, normoactive bowel sounds, soft to palpation, non-tender and non-distended Percussion: normal to percussion Rectal Exam: deferred Assessment & Plan Assessment/Plan (1) Anemia: (2) Lower GI bleeding: PLAN: Assessment and Plan Assessment and Plan (1) Rectal hemorrhage: (2) Anemia: Status: Acute Plan: Trevor is a 39-year-old male patient here today for worsening rectal bleeding over the past 6 months. Patient has bright red blood in his stool with 90% of his bowel movements. He does note dark red clots on occasion. He denies constipation. Patient's primary care provider did perform a rectal exam which did not reveal any hemorrhoids. Recent CBC showing a slightly low hemoglobin of 10.9. Patient's previous hemoglobin from 2014 was 14.3. Due to the persistency of the blood in his stool and low hemoglobin he will undergo colonoscopy for assessment of his lower GI tract. Differential diagnosis does include internal hemorrhoids, anal fissure, diverticulosis or ulcerative colitis. Will repeat CBC in 2 weeks to monitor his hemoglobin otherwise we will plan for colonoscopy. - Colonoscopy - Repeat CBC in 2 weeks - Follow-up after colonoscopy Orders: Orders CBC W/Diff, Automated Today D64.9 - Anemia, unspecified
--- OUTSIDE RECORDS SUMMARY | 2025-05-17 13:25 | XMS RPT_ITS | CCD ---
Author Organization [facility] Care Team Providers Care Arborist Climber Name Role Phone REFERRING, SETH NANCY CALVILLO Attending Unavailable Dr. Marc Webster DO Primary Care Provider Dr. Marc Webster DO Attending Provider Dr. Marc Webster DO Referring Provider [phone] Ruma Mendoza Attending Provider [phone] Ruma Mendoza Referring Provider [phone] Marc Webster Primary Care Unavailable Marc Webster Attending Unavailable Marc Webster Primary Care Unavailable Ruma Santiago Attending Unavailable Marc Webster Referring Unavailable Marc Webster Primary Care Unavailable LuisNoramnn Attending Unavailable Marc Webster Referring Unavailable Marc Webster Primary Care Unavailable Marc Webster Attending Unavailable Marc Webster Primary Care Unavailable Ruma Santiago Attending Unavailable Ruma Santiago Referring Unavailable Marc Webster Primary Care Unavailable Marc Webster Attending Unavailable Allergies Allergy Classification Reported Allergen(s) Allergy Type Date of Onset Reaction(s) Facility (5 sources) bee venom protein (honey bee) Allergy to substance 10-07-2020 Anaphylaxis [facility] (1 source) bee venom protein (honey bee) Drug allergy (disorder) 03-27-2025 [facility] Repository Medications Current Medications Medication Drug Class(es) Dates Sig (Normalized) Sig (Original) buprenorphine 2 mg / naloxone 0.5 mg sublingual film (4 sources) Partial Opioid Agonist, Opioid Antagonist Start: 03-27-2025 Buprenorphine-Nalo xone 2-0.5 mg film Active 1 NMA BUCCAL daily March 27, 2025 12:00am place 1 strip/tab under (each) side of tongue cloNIDine hydrochloride 0.1 mg oral tablet (2 sources) Central alpha-2 Adrenergic Agonist Start: 04-11-2025 take 1 tablet by mouth at bedtime as needed Clonidine Hcl 0.1 mg tablet Active 0.1 mg PO AT BEDTIME as needed April 11, 2025 12:00am pantoprazole 40 mg delayed release oral tablet (4 sources) Proton Pump Inhibitor Start: 03-27-2025 take 1 tablet by mouth once daily Pantoprazole 40 mg tablet,delayed release (DR/EC) Active 40 mg PO daily March 27, 2025 12:00am Completed/Discontinued Medications Medication Drug Class(es) Dates Sig (Normalized) Sig (Original) acetaminophen 325 mg / oxyCODONE hydrochloride 5 mg oral tablet (5 sources) Opioid Agonist Start: 10-07-2020 End: 10-10-2020 [...] hydrochloride 300 mg extended release oral tablet (5 sources) Aminoketone Start: 09-26-2020 End: 03-27-2025 take 1 tablet by mouth once daily in the morning Bupropion Hcl (Wellbutrin Xl) 300 mg tablet extended release 24 hr Discontinued 300 mg PO EVERY MORNING September 26, 2020 1:00am March 27, 2025 3:13pm cyclobenzaprine hydrochloride 10 mg oral tablet (5 sources) Muscle Relaxant Start: 04-30-2016 End: 12-08-2017 take 1 tablet by mouth once daily as needed for muscle spasms Cyclobenzaprine 10 MG tablet Discontinued 10 mg PO DAILY NEEDED as needed for Muscle Spasm April 30, 2016 12:00am December 08, 2017 3:53pm metaxalone 800 mg oral tablet (5 sources) Start: 07-26-2016 End: 12-08-2017 take 1 tablet by mouth twice daily as needed for muscle spasms Metaxalone 800 MG tablet Discontinued 800 mg PO TWICE DAILY NEEDED as needed for Muscle Spasm July 26, 2016 1:00am December 08, 2017 3:53pm PARoxetine hydrochloride 20 mg oral tablet (5 sources) Serotonin Reuptake Inhibitor Start: 08-22-2018 End: 09-26-2020 take 1 tablet by mouth once daily Paroxetine Hcl 20 MG tablet Discontinued 20 mg PO DAILY 30 August 22, 2018 1:00am September 26, 2020 2:13pm Problems Problem Classification Problem Date Documented Da te Episodic/Chronic Deficiency and other anemia (4 sources) Anemia; Translations: [Anemia, unspecified] 04-11-2025 Episodic Deficiency and other anemia (1 source) Anemia, unspecified; Translations: [Anemia, unspecified] Onset: 05-10-2025 Episodic Gastrointestinal hemorrhage (3 sources) Rectal hemorrhage; Translations: [Hemorrhage of anus and rectum] Onset: 04-11-2025 04-11-2025 Episodic Immunizations and screening for infectious disease (5 sources) Patient encounter status; Translations: [Encounter for screening for COVID-19] 05-06-2021 Episodic Other and unspecified benign neoplasm (5 sources) Lipoma of back; Translations: [Benign lipomatous neoplasm of skin and subcutaneous tissue of trunk] 10-22-2020 Episodic Other bone disease and musculoskeletal deformities (10 sources) Segmental and somatic dysfunction; Translations: [Segmental and somatic dysfunction of lumbar region] 09-26-2020 Episodic Other skin disorders (1 source) Rash and other nonspecific skin eruption; Translations: [Rash and other nonspecific skin eruption] Onset: 04-10-2025 Episodic Spondylosis; intervertebral disc disorders; other back problems (5 sources) Disorder of lumbar disc; Translations: [Other intervertebral disc degeneration, lumbar region] 12-08-2017 Chronic Comment on above: L3, L4, L5 Results Test Name Value Interpretation Reference Range Facility Ferritinon 05-03-2025 Ferritin [Mass/Vol] 226 ng/mL Normal 37-417 [facility] Comment on above: Performed By: #### L 503.6150, L503.6550 #### [facility] [place], [address] Ironon 05-03-2025 Iron [Mass/Vol] 103 ug/dL Normal 65-175 [facility] Comment on above: Performed By: #### L 503.6150, L503.6550 #### [facility] [address] [place], [address] Iron measurement (mass/mass) Ordered By: Marc Webster on 05-03-2025 Iron (Unsp spec) [Mass/Mass] 103 ug/dL 65-175 [facility] Serum or plasma ferritin himanshu surement (mass/volume)Ordered By: Marc Webster on 05-03-2025 Ferritin [Mass/Vol] 226 ng/mL 37-417 [facility] Absolute lymphocyte countOrd ered By: Ruma Santiago on 04-27-2025 Lymphocytes Auto (Unsp spec) [#/Vol] 1.28 10*3/uL 0.83-4.51 [facility] Absolute neutrophil countOrd ered By: Ruam Santiago on 04-27-2025 Neutrophils (Bld) [#/Vol] 2.0 10*3/uL 2.0-7.7 [facility] Automated lymphocyte count a s percentage of total leukocytesOrdered By: Ruma Santiago on 04-27-2025 Lymphocytes/100 WBC Auto (Unsp spec) 34.1 % 19-41 [facility] Basophil percentageOrdered B y: Ruma Santiago on 04-27-2025 Basophils/100 WBC (Bld) 1.1 % High 0-1 [facility] CBC W/Diff, Automatedon Absolute Lymph 1.28 X10 3/uL Normal 0.83-4.51 [facility] Comment on above: Performed By: #### L 100.0100 #### [facility] [address] [place], [address] Absolute Neut 2.0 X10 3/uL Normal 2.0-7.7 [facility] Comment on above: Performed By: #### L 100.0100 #### [facility] [address] [place], [address] Basophils/100 WBC (Bld) 1.1 % High 0-1 [facility] Comment on above: Performed By: #### L 100.0100 #### [facility] [address] [place], [address] Eosinophils/100 WBC (Bld) 2.9 % Normal 0-5 [facility] Comment on above: Performed By: #### L 100.0100 #### [facility] [address] [place], [address] Erythrocyte distribution width (RBC) [Ratio] 12.5 % Normal 11.6-14.6 [facility] Comment on above: Performed By: #### L 100.0100 #### [facility] [address] [place], [address] Hematocrit (Bld) [Volume fraction] 32.2 % Low 40-54 [facility] Comment on above: Performed By: #### L 100.0100 #### [facility] [address] [place], [address] Hemoglobin (Bld) [Mass/Vol] 10.7 g/dL Low 13.0-16.5 [facility] Comment on above: Performed By: #### L 100.0100 #### [facility] [address] [place], [address] IG% 0.000 Normal 0.0-0.9 [facility] Comment on above: Result Comment: IG% - Immature Granulocytes (promyelocytes, myelocytes and metamyelocytes) > 1% indicates that a LEFT SHIFT is Present. Performed By: #### L 100.0100 #### [facility] [address] [place], [address] Lymphocytes/100 WBC (Bld) 34.1 % Normal 19-41 [facility] Comment on above: Performed By: #### L 100.0100 #### [facility] [address] [place], [address] MCH (RBC) [Entitic mass] 31.2 pg Normal 27.0-32.0 [facility] Comment on above: Performed By: #### L 100.0100 #### [facility] [address] [place], [address] MCHC (RBC) [Mass/Vol] 33.2 g/dL Normal 32-36 [facility] Comment on above: Performed By: #### L 100.0100 #### [facility] [address] [place], [address] MCV (RBC) [Entitic vol] 93.9 fL Normal 80-94 [facility] Comment on above: Performed By: #### L 100.0100 #### [facility] [address] [place], [address] Monocytes/100 WBC (Bld) 9.6 % Normal 0-10 [facility] Comment on above: Performed By: #### L 100.0100 #### [facility] [address] [place], [address] Neutrophils/100 WBC (Bld) 52.3 % Normal 47-70 [facility] Comment on above: Performed By: #### L 100.0100 #### [facility] [address] [place], [address] Nucleated RBC (Bld) [#/Vol] 0 10*3/uL Normal 0-5 [facility] Comment on above: Performed By: #### L 100.0100 #### [facility] [address] [place], [address] Platelet mean volume (Bld) [Entitic vol] 9.5 fL Normal 6.2-12.0 [facility] Comment on above: Performed By: #### L 100.0100 #### [facility] [address] [place], [address] Platelets (Bld) [#/Vol] 324 10*3/uL Normal 150-450 [facility] Comment on above: Performed By: #### L 100.0100 #### [facility] [address] [place], [address] RBC (Bld) [#/Vol] 3.43 10*6/uL Low 4.6-6.2 [facility] Comment on above: Performed By: #### L 100.0100 #### [facility] [address] [place], [address] RDW SD 43.9 fl Normal 35.1-43.9 [facility] Comment on above: Performed By: #### L 100.0100 #### [facility] [address] [place], [address] WBC (Bld) [#/Vol] 3.8 10*3/uL Low 4.4-11.0 [facility] Comment on above: Performed By: #### L 100.0100 #### [facility] [address] [place], [address] Eosinophil percentageOrdered By: Ruma Santiago on 04-27-2025 Eosinophils/100 WBC (Bld) 2.9 % 0-5 [facility] Erythrocyte distribution wid th ratioOrdered By: Ruma Santiago on 04-27-2025 Erythrocyte distribution width (RBC) [Ratio] 12.5 % 11.6-14.6 [facility] Erythrocyte distribution wid th standard deviationOrdered By: Ruma Santiago on 04-27-2025 Erythrocyte distribution width (RBC) [Ratio] 43.9 fl 35.1-43.9 [facility] Hematocrit Auto (Bld) [Volum e fraction]Ordered By: Ruma Santiago on 04-27-2025 Hematocrit (Bld) [Volume fraction] 32.2 % Low 40-54 [facility] Hemoglobin measurementOrdere d By: Ruma Santiago on 04-27-2025 Hemoglobin (Bld) [Mass/Vol] 10.7 g/dL Low 13.0-16.5 [facility] Immature granulocytes/100 WB C Auto (Bld)Ordered By: Ruma Santiago on 04-27-2025 Immature granulocytes/100 WBC (Bld) 0.000 % 0.0-0.9 [facility] Comment on above: IG% - Immature Granu locytes (promyelocytes, myelocytes and metamyelocytes) > 1% indicates that a LEFT SHIFT is Present. MCV (mean corpuscular volume ) determinationOrdered By: Ruma Santiago on 04-27-2025 MCV (RBC) [Entitic vol] 93.9 fL 80-94 [facility] Mean corpuscular hemoglobin (MCH) determinationOrdered By: Ruma Santiago on 04-27-2025 MCH (RBC) [Entitic mass] 31.2 pg 27.0-32.0 [facility] Mean corpuscular hemoglobin concentration (MCHC) determinationOrdered By: Ruma Santiago on 04-27-2025 MCHC (RBC) [Mass/Vol] 33.2 g/dL 32-36 [facility] Mean platelet volume determi nationOrdered By: Ruma Santiago on 04-27-2025 Platelet mean volume (Bld) [Entitic vol] 9.5 fL 6.2-12.0 [facility] Monocyte percentageOrdered B y: Ruma Santiago on 04-27-2025 Monocytes/100 WBC (Bld) 9.6 % 0-10 [facility] Neutrophil percentageOrdered By: Ruma Santiago on 04-27-2025 Neutrophils/100 WBC (Bld) 52.3 % 47-70 [facility] Nucleated red blood cell per centageOrdered By: Ruma Santiago on 04-27-2025 Nucleated RBC/100 WBC (Bld) [Ratio] 0 % 0-5 [facility] Platelet countOrdered By: Reena Santiago on 04-27-2025 Platelets (Bld) [#/Vol] 324 10*3/uL 150-450 [facility] RBC Auto (Bld) [#/Vol]Ordere d By: Ruma Santiago on 04-27-2025 RBC (Bld) [#/Vol] 3.43 10*6/uL Low 4.6-6.2 [facility] White blood cell (WBC) count Ordered By: Ruma Santiago on 04-27-2025 WBC (Bld) [#/Vol] 3.8 10*3/uL Low 4.4-11.0 [facility] Gastroenterology Visit Repor ton 04-11-2025 Gastroenterology Visit Report [facility] [address] [place] [address] OFFICE VISIT Date of Service: 04/11/25 MR#: [id number] Acct: [id number] Name: TREVOR KNUTSON Rep #: [id number] : 1985 Provider: JENNY Caicedo Age/Sex: 39/M [place] [facility] [place]: Signed Intake Vital Signs 05/06/21 17:18 Height 5 ft 11 in Intake Visit Reasons: Rectal bleeding Chief Complaint: Rectal bleeding Allergies bee venom protein (honey bee) Allergy (Verified 03/27/25 15:12) Anaphylaxis Medications ???Medication ???Instructions ???Recorded ???Confirmed ???Type buprenorphine 2 mg-naloxone 0.5 mg 1 film buccal QDAY 03/27/25 08/0 02/13 History sublingual film pantoprazole 40 mg tablet,delayed [...] change Aller/Imm Allergy/Immunologic: Positive for itchy eyes Pyaam/Lymp Hematologic/Lymphati c: No easy bleeding or easy bruising Exam Const General: cooperative, healthy appearing and comfortable Orientation: alert HENPR Head: normal to inspection Eyes General: appearance [...] CBC W (more content not included)... Normal [facility] Surgery Specimen Level George 04-04-2025 Surgery Specimen Level IV Patient Age/Sex Location Account Attending Phys[facility] 39[id number]. Marc Webster, DO Specimen: [id number] Received: 04/04/25 Status: TATYANA Horn Num: [id number] Spec Type: Lesion Subm Dr: Dr. Marc Webster, DO HEADER OPERATION: Punch biopsy PRE-OP DIAGNOSIS: Chronic dark, [...] developed and their performance characteristics determined by [facility]. They may not have been cleared or approved by the [place]. Food and Drug Administration. The FDA has determined that such clearance or approval is not necessary.??? The above immunohistochemical? ??markers and/or special stains have been reviewed by the Pathologist. GROSS DESCRIPTION A. Received in formalin labeled with the patient's name and date of . Designated as R back" is a 0.3 x 0.2 cm pierre skin punch excised to a maximum depth of 0.1 cm. The resection margin is inked green. Prior 1 cassette. RI 04/05/2025 [facility]:[id number] ,[id number] Patient Age/Sex Location Account Attending Physician ZENIATREVOR T 39/M [facility] [id number] Dr. Marc Webster, DO Signed (signature on file) Dr. Brenna Westbrook MD 04/12/25 1232 Normal [facility] Comment on above: Performed By: #### P SUIV #### [facility] [address] [place], [place] [address], [id number] Absolute lymphocyte countOrd ered By: Marc Webster on 03-26-2025 Lymphocytes Auto (Unsp spec) [#/Vol] 1.32 10*3/uL 0.83-4.51 [facility] Absolute neutrophil countOrd ered By: Marc Webster on 03-26-2025 Neutrophils (Bld) [#/Vol] 2.5 10*3/uL 2.0-7.7 [facility] Anion gap in Serum or Plasma Ordered By: Marc Webster on 03-26-2025 Anion gap [Moles/Vol] 14 mmol/L 5- [facility] Automated lymphocyte count a s percentage of total leukocytesOrdered By: Marc Webster on 03-26-2025 Lymphocytes/100 WBC Auto (Unsp spec) 30.9 % [facility] BUN/creatinine ratioOrdered By: Marc AlmaguerDarin on 03-26-2025 Urea nitrogen/Creatinine [Mass ratio] 17.3 mg/mg 10- [facility] Basophil percentageOrdered B y: Marc AlmaguerDarin on 03-26-2025 Basophils/100 WBC (Bld) 0.7 % 0-1 [facility] Bilirubin, totalOrdered By: Marc Darin on 03-26-2025 Bilirubin [Mass/Vol] 0.27 mg/dL 0.00-1.30 [facility] CBC W/Diff, Automatedon Absolute Lymph 1.32 X10 3/uL Normal 0.83-4.51 [facility] Comment on above: Performed By: #### L 101.9900, L501.9520, L501.9985, L501.6710, L500.4050, L100.0100 #### [facility] [address] [place], [address] Absolute Neut 2.5 X10 3/uL Normal 2.0-7.7 [facility] Comment on above: Performed By: #### L 101.9900, L501.9520, L501.9985, L501.6710, L500.4050, L100.0100 #### [facility] [address] [place], [address] Basophils/100 WBC (Bld) 0.7 % Normal 0-1 [facility] Comment on above: Performed By: #### L 101.9900, L501.9520, L501.9985, L501.6710, L500.4050, L100.0100 #### [facility] [address] [place], [address] Eosinophils/100 WBC (Bld) 1.2 % Normal 0-5 [facility] Comment on above: Performed By: #### L 101.9900, L501.9520, L501.9985, L501.6710, L500.4050, L100.0100 #### [facility] [address] [place], [address] Erythrocyte distribution width (RBC) [Ratio] 12.5 % Normal 11.6-14.6 [facility] Comment on above: Performed By: #### L 101.9900, L501.9520, L501.9985, L501.6710, L500.4050, L100.0100 #### [facility] [address] [place], [address] Hematocrit (Bld) [Volume fraction] 33.0 % Low 40-54 [facility] Comment on above: Performed By: #### L 101.9900, L501.9520, L501.9985, L501.6710, L500.4050, L100.0100 #### [facility] [address] [place], [address] Hemoglobin (Bld) [Mass/Vol] 10.9 g/dL Low 13.0-16.5 [facility] Comment on above: Performed By: #### L 101.9900, L501.9520, L501.9985, L501.6710, L500.4050, L100.0100 #### [facility] [address] [place], [address] IG% 0.200 Normal 0.0-0.9 [facility] Comment on above: Result Comment: IG% - Immature Granulocytes (promyelocytes, myelocytes and metamyelocytes) > 1% indicates that a LEFT SHIFT is Present. Performed By: #### L 101.9900, L501.9520, L501.9985, L501.6710, L500.4050, L100.0100 #### [facility] [address] [place], [address] Lymphocytes/100 WBC (Bld) 30.9 % Normal 19-41 [facility] Comment on above: Performed By: #### L 101.9900, L501.9520, L501.9985, L501.6710, L500.4050, L100.0100 #### [facility] [address] [place], [address] MCH (RBC) [Entitic mass] 30.6 pg Normal 27.0-32.0 [facility] Comment on above: Performed By: #### L 101.9900, L501.9520, L501.9985, L501.6710, L500.4050, L100.0100 #### [facility] [address] [place], [address] MCHC (RBC) [Mass/Vol] 33.0 g/dL Normal 32-36 [facility] Comment on above: Performed By: #### L 101.9900, L501.9520, L501.9985, L501.6710, L500.4050, L100.0100 #### [facility] [address] [place], [address] MCV (RBC) [Entitic vol] 92.7 fL Normal 80-94 [facility] Comment on above: Performed By: #### L 101.9900, L501.9520, L501.9985, L501.6710, L500.4050, L100.0100 #### [facility] [address] [place], [address] Monocytes/100 WBC (Bld) 8.0 % Normal 0-10 [facility] Comment on above: Performed By: #### L 101.9900, L501.9520, L501.9985, L501.6710, L500.4050, L100.0100 #### [facility] [address] [place], [address] Neutrophils/100 WBC (Bld) 59.0 % Normal 47-70 [facility] Comment on above: Performed By: #### L 101.9900, L501.9520, L501.9985, L501.6710, L500.4050, L100.0100 #### [facility] [address] [place], [address] Nucleated RBC (Bld) [#/Vol] 0 10*3/uL Normal 0-5 [facility] Comment on above: Performed By: #### L 101.9900, L501.9520, L501.9985, L501.6710, L500.4050, L100.0100 #### [facility] [address] [place], [address] Platelet mean volume (Bld) [Entitic vol] 9.9 fL Normal 6.2-12.0 [facility] Comment on above: Performed By: #### L 101.9900, L501.9520, L501.9985, L501.6710, L500.4050, L100.0100 #### [facility] [address] [place], [address] Platelets (Bld) [#/Vol] 337 10*3/uL Normal 150-450 [facility] Comment on above: Performed By: #### L 101.9900, L501.9520, L501.9985, L501.6710, L500.4050, L100.0100 #### [facility] [address] [place], [address] RBC (Bld) [#/Vol] 3.56 10*6/uL Low 4.6-6.2 [facility] Comment on above: Performed By: #### L 101.9900, L501.9520, L501.9985, L501.6710, L500.4050, L100.0100 #### [facility] [address] [place], [address] RDW SD 43.0 fl Normal 35.1-43.9 [facility] Comment on above: Performed By: #### L 101.9900, L501.9520, L501.9985, L501.6710, L500.4050, L100.0100 #### [facility] [address] [place], [address] WBC (Bld) [#/Vol] 4.3 10*3/uL Low 4.4-11.0 [facility] Comment on above: Performed By: #### L 101.9900, L501.9520, L501.9985, L501.6710, L500.4050, L100.0100 #### [facility] [address] [place], [address] CRPon 03-26-2025 C-REACTIVE PROT < 3.00 Normal 0.0-3.0 [facility] Comment on above: Performed By: #### L 101.9900, L501.9520, L501.9985, L501.6710, L500.4050, L100.0100 #### [facility] [address] [place], [address] Carbon dioxide, total [Moles /volume] in Central venous bloodOrdered By: Marc Webster on 03-26-2025 CO2 [Moles/Vol] 24.2 mmol/L 21.0-32.0 [facility] Chloride assayOrdered By: Orly Webster on 03-26-2025 Chloride [Moles/Vol] 99 mmol/L 98-108 [facility] Comprehensive Metabolic Prof ilon 03-26-2025 Albumin [Mass/Vol] 4.8 g/dL Normal 3.5-5.0 [facility] Comment on above: Performed By: #### L 101.9900, L501.9520, L501.9985, L501.6710, L500.4050, L100.0100 #### [facility] [address] [place], [address] Albumin/Globulin [Mass ratio] 1.8 {ratio} Normal 0.9-2.4 [facility] Comment on above: Performed By: #### L 101.9900, L501.9520, L501.9985, L501.6710, L500.4050, L100.0100 #### [facility] [address] [place], [address] ALK PHOS 64 U/L Normal 40-129 [facility] Comment on above: Performed By: #### L 101.9900, L501.9520, L501.9985, L501.6710, L500.4050, L100.0100 #### [facility] [address] [place], [address] ALT [Catalytic activity/Vol] 31 U/L Normal <=46 [facility] Comment on above: Performed By: #### L 101.9900, L501.9520, L501.9985, L501.6710, L500.4050, L100.0100 #### [facility] [address] [place], [address] AST [Catalytic activity/Vol] 22 U/L Normal <=37 [facility] Comment on above: Performed By: #### L 101.9900, L501.9520, L501.9985, L501.6710, L500.4050, L100.0100 #### [facility] [address] [place], [address] Bilirubin [Mass/Vol] 0.27 mg/dL Normal 0.00-1.30 [facility] Comment on above: Performed By: #### L 101.9900, L501.9520, L501.9985, L501.6710, L500.4050, L100.0100 #### [facility] [address] [place], [address] BUN/CRE 17.3 RATIO Normal 10-20 [facility] Comment on above: Performed By: #### L 101.9900, L501.9520, L501.9985, L501.6710, L500.4050, L100.0100 #### [facility] [address] [place], [address] Calcium [Mass/Vol] 9.4 mg/dL Normal 7.6-11.0 [facility] Comment on above: Performed By: #### L 101.9900, L501.9520, L501.9985, L501.6710, L500.4050, L100.0100 #### [facility] [address] [place], [address] Chloride [Moles/Vol] 99 mmol/L Normal 98-108 [facility] Comment on above: Performed By: #### L 101.9900, L501.9520, L501.9985, L501.6710, L500.4050, L100.0100 #### [facility] [address] [place], [address] CO2 [Moles/Vol] 24.2 mmol/L Normal 21.0-32.0 [facility] Comment on above: Performed By: #### L 101.9900, L501.9520, L501.9985, L501.6710, L500.4050, L100.0100 #### [facility] [address] [place], [address] Creatinine [Mass/Vol] 0.81 mg/dL Normal 0.70-1.20 [facility] Comment on above: Performed By: #### L 101.9900, L501.9520, L501.9985, L501.6710, L500.4050, L100.0100 #### [facility] [address] [place], [address] GAP 14 Normal 5-15 [facility] Comment on above: Performed By: #### L 101.9900, L501.9520, L501.9985, L501.6710, L500.4050, L100.0100 #### [facility] [address] [place], [address] GFR/1.73 sq M.predicted among non-blacks MDRD (S/P/Bld) [Vol rate/Area] 116 mL/min/{1.73_m2} Normal >60 [facility] Comment on above: Result Comment: mL/m in/1.73m2 CKD-EPI Creatinine Equation (2020) Performed By: #### L 101.9900, L501.9520, L501.9985, L501.6710, L500.4050, L100.0100 #### [facility] [address] [place], [address] Globulin (S) [Mass/Vol] 2.6 g/dL Normal 2.2-4.2 [facility] Comment on above: Performed By: #### L 101.9900, L501.9520, L501.9985, L501.6710, L500.4050, L100.0100 #### [facility] [address] [place], [address] Glucose [Mass/Vol] 99 mg/dL Normal 70-99 [facility] Comment on above: Performed By: #### L 101.9900, L501.9520, L501.9985, L501.6710, L500.4050, L100.0100 #### [facility] [address] [place], [address] Potassium [Moles/Vol] 3.5 mmol/L Normal 3.3-5.1 [facility] Comment on above: Performed By: #### L 101.9900, L501.9520, L501.9985, L501.6710, L500.4050, L100.0100 #### [facility] [address] [place], [address] Sodium [Moles/Vol] 137 mmol/L Normal 133-145 [facility] Comment on above: Performed By: #### L 101.9900, L501.9520, L501.9985, L501.6710, L500.4050, L100.0100 #### [facility] [address] [place], [address] T PROT 7.4 g/dL Normal 5.9-8.4 [facility] Comment on above: Performed By: #### L 101.9900, L501.9520, L501.9985, L501.6710, L500.4050, L100.0100 #### [facility] [address] [place], [address] Urea nitrogen [Mass/Vol] 14 mg/dL Normal 4-19 [facility] Comment on above: Performed By: #### L 101.9900, L501.9520, L501.9985, L501.6710, L500.4050, L100.0100 #### [facility] [address] [place], [address] Eosinophil percentageOrdered By: Marc Webster on 03-26-2025 Eosinophils/100 WBC (Bld) 1.2 % 0-5 [facility] Erythrocyte Sed Rateon 03-26 SED RATE 4 mm/hr Normal 0-20 [facility] Comment on above: Performed By: #### P SUIV #### [facility] [address] [place], [address] Erythrocyte distribution wid th ratioOrdered By: Marc Webster on 03-26-2025 Erythrocyte distribution width (RBC) [Ratio] 12.5 % 11.6-14.6 [facility] Erythrocyte distribution wid th standard deviationOrdered By: Marc Webster on 03-26-2025 Erythrocyte distribution width (RBC) [Ratio] 43.0 fl 35.1-43.9 [facility] Erythrocyte sedimentation ra teOrdered By: Marc Webster on 03-26-2025 ESR (Bld) [Velocity] 4 mm/h 0-20 [facility] Glomerular filtration rate ( GFR) estimation/1.73 sq m using serum, plasma, or whole bOrdered By: Marc Webster on 03-26-2025 GFR/1.73 sq M.predicted among non-blacks MDRD (S/P/Bld) [Vol rate/Area] 116 mL/min/{1.73_m2} >60 [facility] Comment on above: mL/min/1.73m2 CKD-EP I Creatinine Equation (2020) Hematocrit Auto (Bld) [Volum e fraction]Ordered By: Marc Webster on 03-26-2025 Hematocrit (Bld) [Volume fraction] 33.0 % Low 40-54 [facility] Hemoglobin A1con 03-26-2025 HbA1c (Bld) [Mass fraction] 5.7 % Normal <=5.6 [facility] Comment on above: Result Comment: Norm al < 5.7 % Prediabetic 5.7 - 6.4 % Diabetic >or= 6.5 % Please note range changes. Performed By: #### L 101.9900, L501.9520, L501.9985, L501.6710, L500.4050, L100.0100 #### [facility] [address] [place] [address]. [place], [place], [id number] Hemoglobin A1c percentageOrd ered By: Marc Webster on 03-26-2025 HbA1c (Bld) [Mass fraction] 5.7 % <5.7 [facility] Comment on above: Normal < 5.7 % Predi abetic 5.7 - 6.4 % Diabetic >or= 6.5 % Please note range changes. Hemoglobin measurementOrdere d By: Marc Webster on 03-26-2025 Hemoglobin (Bld) [Mass/Vol] 10.9 g/dL Low 13.0-16.5 [facility] Immature granulocytes/100 WB C Auto (Bld)Ordered By: Marc Webster on 03-26-2025 Immature granulocytes/100 WBC (Bld) 0.200 % 0.0-0.9 [facility] Comment on above: IG% - Immature Granu locytes (promyelocytes, myelocytes and metamyelocytes) > 1% indicates that a LEFT SHIFT is Present. Laboratory - Chemistry and C hemistry - challengeOrdered By: Marc Webster on 03-26-2025 AST [Catalytic activity/Vol] 22 U/L <38 [facility] MCV (mean corpuscular volume ) determinationOrdered By: Marc Webster on 03-26-2025 MCV (RBC) [Entitic vol] 92.7 fL 80-94 [facility] Mean corpuscular hemoglobin (MCH) determinationOrdered By: Marc Webster on 03-26-2025 MCH (RBC) [Entitic mass] 30.6 pg 27.0-32.0 [facility] Mean corpuscular hemoglobin concentration (MCHC) determinationOrdered By: Marc Webster on 03-26-2025 MCHC (RBC) [Mass/Vol] 33.0 g/dL 32-36 [facility] Mean platelet volume determi nationOrdered By: Marc Webster on 03-26-2025 Platelet mean volume (Bld) [Entitic vol] 9.9 fL 6.2-12.0 [facility] Monocyte percentageOrdered B y: Marc Webster on 03-26-2025 Monocytes/100 WBC (Bld) 8.0 % 0-10 [facility] Neutrophil percentageOrdered By: Marc Webster on 03-26-2025 Neutrophils/100 WBC (Bld) 59.0 % 47-70 [facility] Nucleated red blood cell per centageOrdered By: Marc Webster on 03-26-2025 Nucleated RBC/100 WBC (Bld) [Ratio] 0 % 0-5 [facility] Platelet countOrdered By: Orly Webster on 03-26-2025 Platelets (Bld) [#/Vol] 337 10*3/uL 150-450 [facility] Potassium measurement (mass/ volume)Ordered By: Marc Webster on 03-26-2025 Potassium (Unsp spec) [Mass/Vol] 3.5 mmol/L 3.3-5.1 [facility] RBC Auto (Bld) [#/Vol]Ordere d By: Marc Webster on 03-26-2025 RBC (Bld) [#/Vol] 3.56 10*6/uL Low 4.6-6.2 [facility] Serum creatinine measurement (mass/volume)Ordered By: Marc Webster on 03-26-2025 Creatinine [Mass/Vol] 0.81 mg/dL 0.70-1.20 [facility] Serum globulin measurementOr dered By: Marc Webster on 03-26-2025 Globulin (S) [Mass/Vol] 2.6 g/dL 2.2-4.2 [facility] Serum glucose measurement (m ass/volume)Ordered By: Marc Webster on 03-26-2025 Glucose [Mass/Vol] 99 mg/dL 70-99 [facility] Serum or plasma C reactive p rotein measurement (mass/volume)Ordered By: Marc Webster on 03-26-2025 CRP [Mass/Vol] mg/L 0.0-3.0 [facility] Serum or plasma alanine blackwell otransferase (ALT) measurementOrdered By: Marc Webster on 03-26-2025 ALT [Catalytic activity/Vol] 31 U/L <47 [facility] Serum or plasma albumin jon urement (mass/volume)Ordered By: Marc Webster on 03-26-2025 Albumin [Mass/Vol] 4.8 g/dL 3.5-5.0 [facility] Serum or plasma albumin/glob ulin mass ratioOrdered By: Marc Webster on 03-26-2025 Albumin/Globulin [Mass ratio] 1.8 {ratio} 0.9-2.4 [facility] Serum or plasma alkaline fernando sphatase measurementOrdered By: Marc Webster on 03-26-2025 ALP [Catalytic activity/Vol] 64 U/L 40-129 [facility] Serum or plasma calcium jon urement (mass/volume)Ordered By: Marc Webster on 03-26-2025 Calcium [Mass/Vol] 9.4 mg/dL 7.6-11.0 [facility] Serum or plasma urea nitroge n measurement (mass/volume)Ordered By: Marc Webster on 03-26-2025 Urea nitrogen [Mass/Vol] 14 mg/dL 4-19 [facility] Sodium levelOrdered By: Marc Webster on 03-26-2025 Sodium [Moles/Vol] 137 mmol/L 133-145 [facility] TSH DL <= 0.005 mIU/L QnOrde red By: Marc Webster on 03-26-2025 TSH Qn 1.520 uIU/mL 0.300-4.200 [facility] Thyroid Stim Hormone (TSH)on 03-26-2025 TSH 1.520 uIU/mL Normal 0.300-4.200 [facility] Comment on above: Performed By: #### L 101.9900, L501.9520, L501.9985, L501.6710, L500.4050, L100.0100 #### [facility] [address] [place], [address] Total proteinOrdered By: Irina Webster on 03-26-2025 Protein [Mass/Vol] 7.4 g/dL 5.9-8.4 [facility] White blood cell (WBC) count Ordered By: Marc Webster on 03-26-2025 WBC (Bld) [#/Vol] 4.3 10*3/uL Low 4.4-11.0 [facility] MRI KNEE W/O CONTRAST RIGHTo [...] 12/24/2022 2:54:16 PM Ordering Provider: SETH REFERRING Normal [facility] ([place]) Encounters Encounter Date Encounter Type Care Provider Facility Start: 05-17-2025 ambulatory Marc Webster Facility: [facility] Start: 05-03-[address] Marc Webster DO -Laboratory [facility] Lebl[facility] Start: 05-03-2025 End: 05-03-2025 ambulatory Marc AlmgauerDarin Facility:[facility] Start: 04-27-2025 End: 04-27-[address] Marc Webster DO Work Phone: -Laboratory Start: 04-27-2025 End: 04-27-2025 Patient encounter procedure Ruma ALVARADO -Laboratory Work Phone: Start: 04-27-2025 End: 04-27-2025 ambulatory Marc AlmaguerDarin Facility:[facility] Start: 04-11-2025 End: 04-11-2025 Patient encounter procedure Ruma ALVARADO -[facility] Work Phone: Start: 04-11-2025 End: 04-11-[address] Marc Webster DO Work Phone: -[facility] Start: 04-04-2025 End: 04-04-[address] Marc Webster DO Work Phone: -Laboratory Specimen Start: 04-04-2025 End: 04-04-[address] Marc Webster DO -Laboratory Specimen Work Phone: Start: 04-04-2025 End: 04-04-2025 ambulatory Marc Webster Facility:[facility] Start: 03-31-2025 Encounter for genera l adult medical examination without abnormal findings [facility] Start: 03-26-2025 End: 03-26-[address] Marc Webster DO Work Phone: -Laboratory Ernestine Leblanc [facility] Start: 03-26-2025 End: 03-26-[address] Marc Webster DO -Laboratory [facility] Lebl[facility] Start: 03-26-2025 End: 03-26-2025 ambulatory Marc Webster Facility:[facility] Start: 12-24-2022 End: 12-25-2022 ambulatory PHY WO ID REFERRING Facility:B Start: 12-24-2022 End: 12-24-2022 Patient encounter procedure PHY WO ID REFERRING [facility] Plan of Treatment Date Care Activity Detail Author CBC W Auto Differential panel - Blood [facility] Payers Date Payer Category Payer Self-pay [id number] 2025 Unknown [id number] 2022 Unknown [id number] [address] [facility] [id number] [facility] 1985 Unknown [id number] Unknown [id number] Unknown [id number] Unknown [id number] Unknown [id number] Unknown [id number] Unknown [id number] Social History Date Type Detail [facility] Work Phone: Start: 1985 Sex Assigned At Male A [facility] Tobacco smoking status No Smokin g Status Entered [facility] Start: 03-27-2025 [facility]finding[facility] Start: 10-02-2020 Tobacco Use Tobacco Use [facility] Evaluation note 04-11-2025 Note Date & Type Note Facility 04-11-2025 Evaluation note Diagnosis Onset Date Resolution Anemia acute April 11, 2:31pm Rectal hemorrhage noneactive April 11, 2025 2:31pm [facility] Work Phone: Progress note 04-11-2025 Note Date & Type Note Facility 04-11-2025 Progress note [facility] Progress note 04-11-2025 Note Date & Type Note Facility 04-11-2025 Progress note Note Date/Time April 11, 2025 3:05pm [facility] [address] [place] [address] OFFICE VISIT Date of Service: 04/11/25 MR#: [id number] Acct: [id number] Name: TREVOR KNUTSON Rep #: [id number] : 1985 Provider: JENNY Caicedo Age/Sex: 39/M [place] [facility]: Signed Intake Vital Signs 05/06/21 17:18 [...] low hemoglobin of10.9. Patient's previous hemoglobin from 2014 was 14.3. Due to the persistencyof the [...] Cosigner Signature: Date (if applicable) CC: ~ [facility] Work Phone: Clinical Note 12-24-2022 Note Date [...] Date: 12/24/2022 2:54:16 PM Ordering Provider: SETH [facility] Clinical Note 12-24-2022 Note Date & Type [...] 12/24/2022 2:54:16 PM Ordering Provider: SETH REFERRING [facility] Evaluation + Plan note Note Date & Type Note Facility Evaluation + Plan note No data available for this section [facility] Evaluation note Note Date & Type Note Facility Evaluation note No assessment information availa ble [facility] Work Phone: Evaluation note Note Date & Type Note Facility Evaluation note Diagnosis Onset Date Resolution Anemia acute April 11, 025 2:31pm Rectal hemorrhage noneactive April 11, 2025 2:31pm [facility] Work Phone: Hospital Discharge instructions Note Date & Type Note Facility Hospital Discharge instructions No data available for this section [facility] Reason for referral (narrative) Note Date & Type Note Facility Reason for referral (narrative) No reason for referral information available [facility] Work Phone: Family History No Family [...] section and content) DATE CREATED AUTHOR 12/31/2022 [facility] ([place]) DATE CREATED AUTHOR AUTHOR'S ORGANIZ ATION 05/16/2025 [facility] Care Teams (unrecognized sec tion and content) Team Status: Active Member Role/Relationship Status Dates Dr. Marc Webster DO Primary Care Provider Active Team Status: Inactive Member Role/Relationship Status Dates Dr. Marc Webster DO Primary Care Provider Active Start: March 26, 2025 End: March 26, 2025 Dr. Marc Webster DO Attending Provider Active Start: March 26, 2025 End: March 26, 2025 Team Status: Inactive Member Role/Relationship Status Dates Dr. Marc Webster DO Primary Care Provider Active Start: April 04, 2025 End: April 04, 2025 Dr. Marc Webster DO Attending Provider Active Start: April 04, 2025 End: April 04, 2025 Team Status: Inactive Member Role/Relationship Status Dates Dr. Marc Webster DO Primary Care Provider Active Start: April 11, 2025 End: April 11, 2025 Dr. Marc Webster DO Referring Provider Active Start: April 11, 2025 End: April 11, 2025 JENNY Caicedo Attending Provider Active Start: April 11, 2025 End: April 11, 2025 Team Status: Inactive Member Role/Relationship Status Dates Dr. Marc Webster DO Primary Care Provider Active Start: April 27, 2025 End: April 27, 2025 JENNY Caicedo Attending Provider Active Start: April 27, 2025 End: April 27, 2025 JENNY Caicedo Referring Provider Active Start: April 27, 2025 End: April 27, 2025 Team Status: Active Member Role/Relationship Status Dates Dr. Marc Webster DO Primary Care Provider Active Start: May 03, 2025 Dr. Marc Webster DO Attending Provider Active Start: May 03, 2025 Team Status: Active Member Role/Relationship Status Dates [...] BE BASED ON THE PRIMARY CLINICAL RECORDS. [facility] [employer] [facility]. provides no warranty or guarantee of the accuracy or completeness of information in this document.
[2025-05-17] MEDS: Lactated Ringers 1,000 ML 15 ML IV (13:32)
--- NOTE | 2025-05-17 13:40 | PCM.PRE.AN2 ---
ASA Classification* ASA Classification ASA Classification: 2 Assessment & Plan Anesthesia* Anesthesia Assessment Anesthesia Assessment: Discussed sedation and/or anesthesia options, risks, benefits, and alternatives with patient/parents/legal guardian/POA. Questions invited. The patient/parents/legal guardian/POA seems to understand and agrees to proceed with anesthesia plan. Reviewed the physical assessment, medical history, allergy history and patient home medications list prior to surgery/procedure/anesthetic and documented any changes. Performed airway and anesthesia risk assessments. Anesthesia Type Anesthesia Type: MAC History Source History Obtained from:: Patient and Chart Anesthesia Focused Assessment* Temperature: 97.9 F Pulse Rate: 85 Blood Pressure: 114/79 Respiratory Rate: 16 Pulse Ox: 97 Oxygen Delivery Method: Room Air Airway Assessment Mouth opens: >3 cm Mallampati Score: II Teeth Condition: Intact Neck Range of motion (ROM): Full ROM Labs Anesthesia Preop lab: CBC WBC, (4.4-11.0) 3.8 K/mm3 L 04/27/25, 10:11 RBC, (4.6-6.2) 3.43 M/mm3 L 04/27/25, 10:11 Hgb, (13.0-16.5) 10.7 g/dL L 04/27/25, 10:11 Hct, (40-54) 32.2 % L 04/27/25, 10:11 Plt Count, (150-450) 324 K/mm3 04/27/25, 10:11 CHEMISTRY Potassium, (3.3-5.1) 3.5 mmol/L 03/26/25, 14:55 Sodium, (133-145) 137 mmol/L 03/26/25, 14:55 BUN, (4-19) 14 mg/dL 03/26/25, 14:55 Creatinine, (0.70-1.20) 0.81 mg/dL 03/26/25, 14:55 Glucose, (70-99) 99 mg/dL 03/26/25, 14:55 TSH, (0.300-4.200) 1.520 uIU/mL 03/26/25, 14:55 COAG Pre-Assessment Diagnosis/Proposed Procedure Planned Operative Procedure(s): COLONOSCOPY Anesthesia History 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 When Was Last Pacemaker Check QUESTION #4 FULL TEXT: You/Your Family Experience fever (hyperthermia) with Anesthesia Last Oral Intake Last Oral intake: Last Oral Intake NPO since 08:30 05/17/25 13:21 Meds taken in AM with sips of Yes 05/17/25 13:21 water? Meds patient instructed to bowel prep 05/17/25 13:21 take am of surgery PONV PONV - packaging specialist: PONV - packaging specialist Female No 05/15/25 10:29 HX of Motion Sickness No 05/15/25 10:29 HX of N/V After Surgery No 05/15/25 10:29 Non-Smoker Yes 05/15/25 10:29 Duration of Surgery greater No 05/15/25 10:29 than 60 minutes Number of Risk Factors 1 05/15/25 10:29 PONV Score Low Risk 05/15/25 10:29 Height & Weight Height & Weight: Anesthesia: Height & Weight Height 5 ft 11 in 05/17/25 13:21 Weight: 96.6 kg 05/17/25 13:21 Body Mass Index (BMI) 29.7 05/17/25 13:21 Respiratory Assessment Respiratory Assessment - packaging specialist: Respiratory Tract Infection Hx - packaging specialist Hx Respiratory Tract Infection No 05/15/25 10:29 STOP Sleep Apnea STOP Sleep Apnea - packaging specialist: STOP Sleep Apnea - packaging specialist Hx Hypertension No 05/15/25 10:29 Hx Sleep Apnea Yes 05/15/25 10:29 CPAP Yes 05/15/25 10:29 BIPAP No 05/15/25 10:29 Do you snore loudly (louder than talking or can be heard Do you often feel tired/ fatigued/ sleepy during daytime? Has anyone observed you stop breathing during sleep? STOP Results Positive 05/15/25 10:29 QUESTION #5 FULL TEXT : Do you snore loudly (louder than talking or can be heard through closed doors)? 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 Specify any problems Hx of Preganancy in last 3 N/A 05/15/25 10:29 Months Nurse Filling Out Transfusion [facility] 05/15/25 10:29 & Questions: Date: 05/15/25 05/15/25 10:29 Time: 10:36 05/15/25 10:29 Patient unable to answer at this time (ie. confused, unrespo /Reproduction History /Reproductive History - packaging specialist: /Reproductive Hx- packaging specialist Hx Now Gestational Age (in weeks): EDC: Hx Hx Para Hx Section SAB Active Medications Active Medications: Current Medications Generic Name Dose Route Start Last Admin Trade Name Freq PRN Reason Stop Dose Admin Lactated Ringer's 1,000 mls @ 15 mls/hr 05/17/25 13:15 05/17/25 13:32 IV 15 mls/hr .Q48H YAZAN Administration PFSH Medical History Wears glasses Wears contact lenses Rash History of GI bleed Syncope Gastric reflux Non-smoker CPAP (continuous positive airway pressure) dependence Sleep apnea PATRICK (obstructive sleep apnea) KHADIJAH (generalized anxiety disorder) Major depressive disorder Rectal bleeding Encounter for screening for COVID-19 Lipoma of back Bulging lumbar disc Segmental and somatic dysfunction of thoracic region Segmental and somatic dysfunction of lumbar region Home Medications Medication Instructions Recorded Last Taken Type buprenorphine 2 mg-naloxone 0.5 mg 1 film buccal QDAY 03/27/25 Unknown History sublingual film pantoprazole 40 mg tablet,delayed 40 mg PO QDAY 03/27/25 Unknown History release clonidine HCl 0.1 mg tablet 0.1 mg PO QHS PRN RESTLESSNESS 04/11/25 Unknown History clobetasol 0.05 % topical cream 1 applic topical BID PRN rash 05/15/25 Unknown History Allergy/AdvReac Type Severity Reaction Status Date / Time bee venom protein (honey bee) Allergy Anaphylaxis Verified 05/17/25 13:20 Family History Father Diabetes Hypertension Other Breast cancer Surgical History History of meniscectomy of right knee History of nasal surgery Hx of vasectomy Social History Smoking Status: Never smoker Smokeless tobacco user: chewing tobacco alcohol intake: never substance use type: does not use what type of physical activity do you participate in: none Review of Systems (Anesthesia) ROS Narrative System reviewed and no additional complaints, except as documented.
[2025-05-17] MEDS: Lactated Ringers 500 ML IV (14:01)
--- NOTE | 2025-05-17 14:28 | PCM.POST.ANE ---
Anesthesia: Postop Eval I Current Vital Signs Temperature: 97 F Pulse Rate: 81 Blood Pressure: 105/64 Respiratory Rate: 14 Pulse Ox: 97 Oxygen Delivery Method: Room Air Assessment Airway patent: Yes Spontaneous unlabored respirations: Yes Mental status: Awake and Calm nausea: No Vomiting: No Anesthesia Complication: No Fluid Hydration Crystalloid volume administer (ml): 600 Total IV fluid infused: 600 Progress Note Anesthesia document: Postop Eval 1 completed: Yes
--- NOTE | 2025-05-17 14:34 | OP.COLON_ITS ---
Patient Name: Doni Vogel Procedure Date: 05/17/2025 1:57 PM Date of : 1985 Age: 39 Procedure: Colonoscopy Indications: Hematochezia Providers: Vargas Smith DO Referring MD: Marc Webster Medicines: Monitored Anesthesia Care Patient Profile: This is a 39 year old male. Refer to note in patient chart for documentation of history and physical. Last Colonoscopy: none. The patient's first colonoscopy is today. Complications: No immediate complications. Procedure: Pre-Anesthesia Assessment: - Prior to the procedure, a History and Physical was performed, and patient medications and allergies were reviewed. The patient is competent. The risks and benefits of the procedure and the sedation options and risks were discussed with the patient. All questions were answered and informed consent was obtained. Patient identification and proposed procedure were verified by the physician in the pre-procedure area. Mental Status Examination: alert and oriented. Airway Examination: normal oropharyngeal airway and neck mobility. Respiratory Examination: clear to auscultation. CV Examination: normal. Prophylactic Antibiotics: The patient does not require prophylactic antibiotics. Prior Anticoagulants: The patient has taken no anticoagulant or antiplatelet agents. ASA Grade Assessment: II - A patient with mild systemic disease. After reviewing the risks and benefits, the patient was deemed in satisfactory condition to undergo the procedure. The anesthesia plan was to use monitored anesthesia care (MAC). Immediately prior to administration of medications, the patient was re-assessed for adequacy to receive sedatives. The heart rate, respiratory rate, oxygen saturations, blood pressure, adequacy of pulmonary ventilation, and response to care were monitored throughout the procedure. The physical status of the patient was re-assessed after the procedure. After I obtained informed consent, the scope was passed under direct vision. Throughout the procedure, the patient's blood pressure, pulse, and oxygen saturations were monitored continuously. The Colonoscope was introduced through the anus and advanced to the terminal ileum. The colonoscopy was performed without difficulty. The patient tolerated the procedure well. The quality of the bowel preparation was adequate. The terminal ileum, ileocecal valve, appendiceal orifice, and rectum were photographed. Scope In: 2:06:21 PM Scope Withdrawal Time 0 hours 13 minutes 11 seconds Scope Out: 2:26:15 PM Total Procedure Duration Time 0 hours 19 minutes 54 seconds Findings: The perianal and digital rectal examinations were normal. A 5 mm anal fissure was found in the anal canal. Non-bleeding internal hemorrhoids were found during retroflexion. The hemorrhoids were Grade II (internal hemorrhoids that prolapse but reduce spontaneously). A hemorrhoid was isolated with anoscopy. The ShortShot ligator was positioned over the hemorrhoid at the left lateral position. Suction was applied and one rubber band was placed over the hemorrhoid. This was checked to make certain that the muscularis was free of the band. Post-banding digital rectal exam showed band in good position. There were no complications. The exam was otherwise without abnormality on direct and retroflexion views. There was a large lipoma, in the descending colon. Impression: - Anal fissure. - Non-bleeding internal hemorrhoids. Banded. - The examination was otherwise normal on direct and retroflexion views. - No specimens collected. Recommendation: - Discharge patient to home. - Resume previous diet. - Continue present medications. - Repeat colonoscopy in 10 years for screening purposes. Procedure Code(s): --- Professional --- 06224, Colonoscopy, flexible; with band ligation(s) (eg, hemorrhoids) CPT copyright 2021 [employer]. All rights reserved. The codes documented in this report are preliminary and upon rough rounder machine review may be revised to meet current compliance requirements. Vargas Smith DO 05/17/2025 2:34:43 PM This report has been signed electronically. Number of Addenda: 0 Note Initiated On: 05/17/2025 1:57 PM
--- NOTE | 2025-05-17 14:35 | OP.PROVAT_ITS ---
05/17/2025 Marc Webster [address] [place] [address] Re : Colonoscopy procedure for Donitessie Neridorina Dear Dr. Webster This procedure was performed on Saturday, May 17, 2025. My impressions and recommendations are as follows: Impressions : - Anal fissure. - Non-bleeding internal hemorrhoids. Banded. - The examination was otherwise normal on direct and retroflexion views. - No specimens collected. Recommendations : - Discharge patient to home. - Resume previous diet. - Continue present medications. - Repeat colonoscopy in 10 years for screening purposes. My findings are described in the full procedure note, which is enclosed. If I can be of further assistance, please feel free to contact me at . Sincerely, Vargas Friend, 05/17/2025 2:34:43 PM This report has been signed electronically.
[2025-05-17] MEDS: Lidocaine Jelly 2% 20 ML Syringe (URO-JET) 1 APPLIC TOPICAL (15:19)
--- NOTE | 2025-05-17 15:32 | POSTOPAN2_ITS ---
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.[email or web address] Spontaneous unlabored Yes 05/17/25 14:31 PASTING MACHINE [email or web address].[email or web address] respirations Mental status Awake,Calm 05/17/25 14:31 PASTING MACHINE [email or web address].HBARR nausea No 05/17/25 14:31 PASTING MACHINE [email or web address].HBARR Vomiting No 05/17/25 14:31 PASTING MACHINE [email or web address].[email or web address] Anesthesia Postop Eval I: Fluid Summary Crystalloid volume administer 600 05/17/25 14:31 PASTING MACHINE [email or web address].HBARR (ml) Colloids volume administered ( ml) Blood Product volume administered (ml) Total IV fluid infused 600 05/17/25 14:31 PASTING MACHINE [email or web address].HBARR Anesthesia Postop Eval I: Summary Notes Anesthesia Complication No 05/17/25 14:37 PASTING MACHINE [email or web address].HBARR Anesthesia Complication Comment: Post-operative progress note Anesthesia: Postop Eval II Evaluation Mental status: Awake and Calm Pain Level: 1 nausea: No Vomiting: No Complications Anesthesia Complication: No
--- NOTE | 2025-05-17 15:32 | PCM.POSTANE2 ---
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 Spontaneous unlabored Yes 05/17/25 14:31 MESS [email or web address].[email or web address] respirations Mental status Awake,Calm 05/17/25 14:31 MESS [email or web address].[email or web address] nausea No 05/17/25 14:31 MESS ATTENDANT.HBARR Vomiting No 05/17/25 14:31 MESS [email or web address].[email or web address] Anesthesia Postop Eval I: Fluid Summary Crystalloid volume administer 600 05/17/25 14:31 [email or web address].[email or web address] (ml) Colloids volume administered ( ml) Blood Product volume administered (ml) Total IV fluid infused 600 05/17/25 14:31 MESS [email or web address].[email or web address] Anesthesia Postop Eval I: Summary Notes Anesthesia Complication No 05/17/25 14:37 MESS [email or web address].HBARR Anesthesia Complication Comment: Post-operative progress note Anesthesia: Postop Eval II Evaluation Mental status: Awake and Calm Pain Level: 1 nausea: No Vomiting: No Complications Anesthesia Complication: No
== END 2025-05-17 15:50 | disposition home or self-care (01) ==
LOC: EN 13:05 → AC 13:07
PROVIDERS: PCP Family Medicine; Referring Provider Family Medicine; Visit Provider Internal Medicine Gastroenterology
PROC: 0DJD8ZZ Inspection of Lower Intestinal Tract, Via Natural or Artificial Opening Endoscopic (ICD-10-PCS; CPT 45378; principal; 2025-05-17 13:55)
DX: K64.1 Second degree hemorrhoids (principal); D64.9 Anemia, unspecified; K21.9 Gastro-esophageal reflux disease without esophagitis; K60.2 Anal fissure, unspecified; F17.220 Nicotine dependence, chewing tobacco, uncomplicated
CPT/HCPCS: 45398